=== PATIENT | male | born 1940 | race African-American/Black ===

== ENCOUNTER 2016-09-30 15:01 | Emergency (ER) | payer OTHER ==
[~2016-09-30] VITALS: Ht 182.9 cm; Wt 90.7 kg
--- NOTE | ~2016-09-30 | EKG ---
[address] [place] [address] ELECTROCARDIOGRAM REPORT Name: PERFECTO DYE Room #: [facility] M.R.#: [id number] Admission: Attend Phys: Discharge: Date of : 39 Report #: [id number] THIS REPORT FOR: //name// [facility] ED Test Date: 2016-09-30 Test Time: 15:28:39 Pat Name: PERFECTO DYE Department: Room: Gender: M Md Do Resident Urgent Care: MZGREGORY : 1940 Requested By: Tobias Drummond Order Number: [id number] MD: Measurements Intervals [place] Rate: 52 P: 9 WA: 169 QRS: -20 QRSD: 123 T: -1 QT: 464 QTc: 432 Interpretive Statements Sinus rhythm Nonspecific intraventricular conduction delay Inferior infarct, old Compared to ECG 06/25/2011 01:33:12 Intraventricular conduction delay now present Myocardial infarct finding now present [email or web address] By: [id number] Jerad Mars MD /ANTONIO
[~2016-09-30 15:01] MED LIST: ADULT LOW DOSE81 MG PO; ALTACE10 M1 PO; ALTACE5 M1 PO; APAP500 PO; ASPIRIN EC81 M1 PO; BABY ASA 81MG; CARAFATE 11 GM/10 M1; CARAFATE 11 GM/10 M1 PO; CARAFATE1 GM/10 ML PO; CIPROFLOXACIN500 M1 PO; CITRATE OF MAG296 ML PO; COLACE100 MG PO; COUMADIN 10MG T10 M1 PO; COUMADIN 4 MG TA4 M1; COUMADIN OR; CYCLOBENZAPRINE10 MG PO; FLEXERIL PO; FLONASE; LIDOCAINE VISC100 M1; LORTABELXR PO; LOVENOX; LOVENOX SQ; MECLIZINE HCL12.5 MG PO; METOCLOPRAMIDE10 MG PO; MYLANTA 12 OZ355 M1; MYLANTA 12 OZ355 M1 PO; NORCO 5-325 TA1 EACH PO; PANTOPRAZOLE SO40 MG PO; PROTONIX 20 MG20 M1 PO; RAPAFLO8 MG PO; TRAMADOL 50 MG50 MG PO; XANAX 0.5 MG0.5 M1 PO; ZETIA10 MG; ZETIA10 MG PO; ZOFRAN ODT4 MG PO
[2016-09-30 15:15] VITALS: BP 177/81
[2016-09-30 16:28] LABS: ABSOLUTE NEUTROPHILS 1.6 thou/uL (1.4-8.2); BASOPHILS 0.7 % (0.0-2.0); EOSINOPHILS 3.8 % (0.0-3.0); HEMATOCRIT 44.5 % (42.0-52.0); HEMOGLOBIN 14.5 gm/dL (14.0-18.0); LYMPHOCYTES 40.1 % (24.0-44.0); MCH 30.2 pg (26.0-34.0); MCHC 32.6 g/dL (28.0-37.0); MCV 92.6 fL (80.0-100.0); MONOCYTES 11.6 % (1.0-8.0); PLATELET COUNT 139 thou/uL (150-400); POLYS 43.8 % (36.0-66.0); RDW 16.7 % (10.5-14.5); WBC 3.6 thou/uL (4.0-11.0)
[2016-09-30 16:29] LABS: MANUAL DIFF NO
[2016-09-30 16:36] LABS: ANION GAP 8 mmol/L (7-16); BUN 13 mg/dL (7-18); CALCIUM 6.2 mg/dL (8.5-10.1); CHLORIDE 117 mmol/L (98-107); CO2 21 mmol/L (21-32); CREATININE 0.8 mg/dL (0.7-1.3); GLUCOSE 67 mg/dL (74-106); POTASSIUM 3.2 mmol/L (3.5-5.1); SODIUM 146 mmol/L (136-145)
[2016-09-30 16:43] LABS: ALBUMIN 2.4 g/dL (3.4-5.0); ALKALINE PHOSPHATASE 44 U/L (46-116); MAGNESIUM 1.4 mg/dL (1.8-2.4); SGOT 20 U/L (15-37); SGPT 16 U/L (30-65); TOTAL BILIRUBIN 0.3 mg/dL (<0.1-1.0); TOTAL PROTEIN 4.9 g/dL (6.4-8.2); TROPONIN-I < 0.04 ng/mL (<0.04-0.07)
== END 2016-09-30 18:14 | disposition home or self-care (01) ==
LOC: ER 15:01
PROVIDERS: Physician Assistant
DX: I10 Essential (primary) hypertension (principal); M54.9 Dorsalgia, unspecified; R00.2 Palpitations

== ENCOUNTER 2017-03-25 18:05 | Emergency (ER) | payer OTHER ==
[~2017-03-25] VITALS: Ht 180.3 cm; Wt 95.3 kg
[2017-03-25] MEDS ORDERED: PROTONIX40 M1 PO (18:16)
[2017-03-25 19:17] LABS: HEMATOCRIT 42.8 % (42.0-52.0); MCH 29.6 pg (26.0-34.0); MCHC 32.6 g/dL (28.0-37.0); MCV 90.7 fL (80.0-100.0); RBC 4.71 mil/uL (4.50-6.00); WBC 4.1 thou/uL (4.0-11.0)
[2017-03-25 19:25] LABS: CREATININE 1.3 mg/dL (0.7-1.3); POTASSIUM 4.6 mmol/L (3.5-5.1)
[2017-03-25 19:33] LABS: INR 2.8; PROTIME 28.2 Seconds (9.3-11.4)
[2017-03-25 21:41] VITALS: BP 131/74
== END 2017-03-25 21:42 | disposition home or self-care (01) ==
LOC: ER 18:05
PROVIDERS: Physician Assistant
DX: S30.1XXA Contusion of abdominal wall, initial encounter (principal); Z79.01 Long term (current) use of anticoagulants; I10 Essential (primary) hypertension; E78.00 Pure hypercholesterolemia, unspecified; Z86.73 Personal history of transient ischemic attack (TIA), and cerebral infarction without residual deficits; Z88.6 Allergy status to analgesic agent; Z91.041 Radiographic dye allergy status; Z88.5 Allergy status to narcotic agent; Z88.1 Allergy status to other antibiotic agents; Z88.8 Allergy status to other drugs, medicaments and biological substances; W01.0XXA Fall on same level from slipping, tripping and stumbling without subsequent striking against object, initial encounter; Y93.89 Activity, other specified; Y92.89 Other specified places as the place of occurrence of the external cause; Y99.0 Civilian activity done for income or pay

== ENCOUNTER → 2017-12-01 | Outpatient (CLI) | payer OTHER ==
[~2017-12-01] VITALS: Ht 180.3 cm; Wt 93.0 kg
[~2017-12-01] MED LIST changes: +CALCIUM 600 +1 EA13 PO; +CELEBREX100 MG/1 C PO; +CENTRUM COMPLE1 EACH PO; +COUMADIN 4 MG TA4 M1 PO; +PROTONIX40 M1 PO; +RAMIPRIL5 MG PO; +VITAMIN D-32000 UNIT PO
--- NOTE | ~2017-12-01 | HPC ---
[facility] [address] [place] [address] PAIN MANAGEMENT CONSULTATION Name: PERFECTO DYE Room #: MIGUEL MEDINAMounika Liu#: [id number] Admission: 12/01/17 Attend Phys: Mac Mccallum DO Discharge: Date of : 39 Report #: [id number] THIS REPORT FOR: //name// CC: Mac Tejada MD DATE OF SERVICE: 12/01/2017 CHIEF COMPLAINT: Neck pain, left head pain. HISTORY OF PRESENT ILLNESS: As you know, the patient is a very pleasant 77-year-old male who has had a 5-month history of ongoing neck pain, left head pain. The patient indicates pain began spontaneously. No injury or trauma. He states his pain has progressively worsened. He sought evaluation through his primary care physician who trialled conservative treatment but due to lack of improvement, the patient was subsequently referred to our clinic. He is referred today without imaging of the cervical spine; he comes with only lumbar imaging. He indicates his pain today at level of 3/10. The patient states pain is constant, describes the pain as sharp, exacerbated with driving, lying down, improves with pain medications. He places pain at around 3/10 on a daily average. He has denied any specific injury or trauma that may have led to symptom development. He indicates heat compress tends to improve his pain most effectively. The patient has been referred to our service to discuss cervicalgia. PAST MEDICAL HISTORY: 1. Hypertension. 2. Chronic colon problems. 3. Transient ischemic attacks, requiring chronic anticoagulation. 4. Incontinence and dribbling to urine. 5. Osteoarthritis. 6. Prostate cancer. PAST SURGICAL HISTORY: 1. Transurethral resection of the prostate. 2. Knee surgery. SOCIAL HISTORY: The patient denies tobacco, alcohol, IV or illicit drug use. He is retired, retired years ago. He is not receiving workmen's compensation or is he trying to obtain disability benefits. He is not in litigation in regards to pain. He is unaccompanied today. REVIEW OF SYSTEMS: Positive for night sweats, frequent and recurrent headaches, wearing corrective eyewear, hearing loss with tinnitus, chronic sinus problems, [facility] [address] [place] [address] PAIN MANAGEMENT CONSULTATION Name: PERFECTO DYE Room #: REG CL Jay.#: [id number] Admission: 12/01/17 Attend Phys: Mac Mccallum DO Discharge: Date of : 39 Report #: [id number] sore throat and voice changes, peptic ulcer disease, frequent urination, nocturia, incontinence and dribbling to urine, sexual difficulty, varicose veins, headaches, lightheadedness and dizziness, heat and cold intolerance, bleeding and bruising tendencies secondary to chronic anticoagulation. All other review of systems negative per 12-point review of systems other than those listed in history of present illness. Pain impact score 38/70 indicating moderate interference of daily activities secondary to pain. ALLERGIES: IV CONTRAST AGENT, IODINE, HYDROCODONE, ACETAMINOPHEN, ATORVASTATIN. CURRENT MEDICATIONS: Cyclobenzaprine 10 mg 3 times a day, cholecalciferol 2000 units 2 tabs per day, Centrum Silver 1 tab per day, calcium carbonate 1 tab per day, warfarin 4 mg 2 tabs per day, Ramipril 5 mg per day, pantoprazole 40 mg per day, Zetia 10 mg per day. IMAGING: No imaging of the cervical spine available. PQRS: The patient has known osteoarthritis of the low back, bilateral knees. No rheumatoid arthritis. He places pain intensity of 3/10. He is not a fall risk, has not had fallen in last 3 months. He is on a blood thinner in the form of warfarin secondary to multiple TIAs. Does have a history of hypertension, treated medically. He is not on opioids. He has a low risk of opioid abuse. Functional assessment tool indicates pain impact of 37/70, moderate in nature. PHYSICAL EXAMINATION: VITAL SIGNS: Blood pressure 103/67, pulse is 92, respiratory rate 14 and unlabored. The patient is 100% on room air. Height 5 feet 11 inches tall, weight 205 pounds, BMI calculated 28.6. GENERAL: Well-developed, well-nourished, well-hydrated, 77-year-old male. He appears his stated age. He is in no acute distress, awake, alert and oriented x 3. Current pain score is 3/10. HEENT: Normocephalic, atraumatic. Pupils equal, round, reactive to light. Extraocular muscles are intact. Sclerae nonicteric without injection. NEUROLOGIC: Cranial nerves 2-12 grossly intact. Speech fluent. The patient deemed an excellent historian. LUNGS: Clear, no wheeze, rhonchi or rales. CARDIOVASCULAR: Regular. No appreciable gallop, no rub. ABDOMEN: Soft, nontender, nondistended, normoactive bowel sounds. EXTREMITIES: Show no clubbing, no cyanosis, no edema. MUSCULOSKELETAL: There is some palpatory tenderness over the paraspinal musculature of cervical spine, left greater than right. Deep palpation of the upper cervical region causes intensification of pain with radiation over the occiput. There is severe limited range of motion to the left with pain generation and moderate to severe rotational restriction to the right of the [facility] [address] [place] [address] PAIN MANAGEMENT CONSULTATION Name: PERFECTO DYE Room #: REG [facility]#: [id number] Admission: 12/01/17 Attend Phys: Mac Mccallum DO Discharge: Date of : 39 Report #: [id number] cervical spine. Upper extremity strength is symmetrical 5/5. He is intact to light touch from C5 through T1 dermatomes. Deep tenderness reflexes are symmetrical, 1+/4 at biceps, brachioradialis and triceps. ASSESSMENT: 1. Osteoarthritis of the cervical spine. 2. Cervical spondylosis without radiculopathy. 3. Myofascial pain. 4. Cervicogenic headache. 5. Third occipital neuralgia. PLAN: 1. Based on today's physical exam, history the patient has provided, the description the patient uses in regards to pain as well as the source of his symptoms generated from the cervical spine radiating over the distribution of the third occipital nerve, likely source of the patient's pain is cervicogenic headache. Typical cervicogenic headaches are due to third occipital involvement and this appears to be the case in the patient today. We have discussed with the patient the options for treatment for cervicogenic headache. Based on the findings today, the following was discussed. We discussed physical therapy, stretching exercises, traction techniques which will not only improve the patient's overall pain, but also improve his mobility, gaining back some of the function that has been reduced likely due to fairly significant arthritic changes in the cervical region. We discussed medication management utilizing nonsteroidal anti-inflammatory. Luckily, the patient is on Coumadin which does allow us to utilize Celebrex as an anti-inflammatory. It does not preclude all nonsteroidal anti-inflammatories. We discussed intra-articular facet injections and third occipital nerve blocks. Surgical options do exist for the patient, though further imaging would be necessary before this could be discussed. After reviewing the risks and benefits of all proposed treatment options, the patient chose to begin with conservative medical management. 2. The patient was started on Celebrex 100 mg dose 1 tab p.o. b.i.d. This could be escalated to 200 mg twice a day if necessary, though we will start with a lower dose given his concomitant use of Coumadin. We do not wish to cause a potential increase in bleeding risk, though Celebrex is approved to be used concomitantly with Coumadin. He was given #60 tablets, 2 refills. He can follow up with his PCP for continuation of this therapy if effective. 3. The patient will return to our clinic on an as-needed basis. At present, he wishes to use more conservative treatment. He is going to look into the possibility of physical therapy and discuss this with his PCP. 4. We wish to thank Dr. Tejada for the referral of patient to our clinic. We will keep you apprised of his response to treatment [place] [address] PAIN MANAGEMENT CONSULTATION Name: HARDIKPERFECTO Room #: REG MAYKEL Liu#: [id number] Admission: 12/01/17 Attend Phys: Mac Mccallum DO Discharge: Date of : 39 Report #: [id number] cervicogenic headache. Again, we wish to thank you for the opportunity to see the patient in consultation. By: [id number] Mac Mccallum DO /nt
[2017-12-01 09:15] VITALS: BP 103/67
== END ==
LOC: PAIN 07:28
DX: M47.812 Spondylosis without myelopathy or radiculopathy, cervical region (principal); M54.81 Occipital neuralgia; R51 Headache; M79.1 Myalgia; I10 Essential (primary) hypertension; C61 Malignant neoplasm of prostate

== ENCOUNTER → 2018-04-30 | Outpatient (CLI) | payer OTHER ==
[~2018-04-30] VITALS: Ht 182.9 cm; Wt 95.3 kg
[~2018-04-30] MED LIST changes: +COUMADIN7.5 MG PO; +ENOXAPARIN100 MG/11 SUBQ
--- NOTE | ~2018-04-30 | P ---
[facility] [place] [address] [address] [place] [address] PROCEDURE REPORT Name: PERFECTO DYE Room #: MIGUEL MEDINAMounika Liu#: [id number] Admission: 04/30/18 Attend Phys: Saravanan Pérez MD Discharge: Date of : 39 Report #: [id number] THIS REPORT FOR: //name// CC: Saravanan Tejada BRIEF HISTORY: The patient is a 78-year-old male, well known to me. He denies any history of reflux disease and also Curran esophagus. He presents with this increasing reflux symptoms and reports recent solid food dysphagia. PREOPERATIVE DIAGNOSES: Worsening reflux disease, on therapy and dysphagia. POSTOPERATIVE DIAGNOSES: 1. Long segment of Curran, history of low-grade dysplasia. 2. Large hiatus hernia. 3. Diffuse gastritis. MEDICATIONS: Deep sedation with propofol per Anesthesia. SPECIMEN: None. ESTIMATED BLOOD LOSS: None. PROCEDURE: EGD and Butcher dilation. FINDINGS: Prior to propofol sedation, procedure of upper endoscopy and dilation were discussed with the patient as well as potential risks and its complications. He goes to [facility] for monitoring of his Curran esophagus and low-grade dysplasia. We discussed biopsy, but he would prefer that we leave that to [facility], and he plans to visit with them next spring. So unless there is something atypical, our intentions were not to routinely biopsy his Curran mucosa. DESCRIPTION OF PROCEDURE: With the patient in left lateral decubitus position, the Olympus video endoscope was inserted in the cervical esophagus under direct vision without difficulty. Examination of this organ through its entire length revealed normal esophageal mucosa in the proximal and mid esophagus. However, as we advanced the scope, Curran mucosa was seen. Starting about 7-8 cm above the gastroesophageal junction, there were islands of Curran mucosa, to advance the scope it became more confluent and with essentially completely circumferential involvement at the level of the gastroesophageal junction. Both wide and narrow band imaging was used. The Curran mucosa was flat. There were no ulcers or erosions, raised lesions or nodules. The Curran mucosa had a benign appearance. The distal esophagus is also quite tortuous. There was fluid pulled in a tortuous segment of distal esophagus consistent with reflux disease. We aspirated away all the fluid. An obvious stricture or mass was not [facility] [address] [place] [address] PROCEDURE REPORT Name: MACHELLE DYENIKKI Room #: REG [facility].#: [id number] Admission: 04/30/18 Attend Phys: Saravanan Pérez MD Discharge: Date of : 39 Report #: [id number] seen. The scope was advanced into a moderately large hiatus hernia. It was in the range of at least 3-5 cm. The mucosa and hernia were unremarkable. No ulcers were seen. As we advanced the scope through the hernia as the stomach crossed the diaphragmatic hiatus, there were linear erythematous streaks. However, no ulcers, erosions or bleeding lesions were seen. The scope was advanced fully into the distal stomach and was examined on end view as well as retroflexed views. There was a diffuse gastritis, but no ulcers were seen. Upon retroflexion, the moderately large hiatus hernia was seen. The pylorus, duodenal bulb and postbulbar sweep were all inspected and noted to be unremarkable. At that point, the scope was slowly withdrawn and careful circumferential views confirmed the above findings. The patient tolerated the procedure well. Following the procedure, he was dilated with passage of a 52-Arabic Butcher dilator. No resistance was encountered. CONDITION OF THE PATIENT UPON DISCHARGE: Following procedure, the patient drowsy, aroused, conversant and will be discharged home when fully ambulatory. INSTRUCTIONS TO THE PATIENT AND FAMILY AT THE TIME OF DISCHARGE:. The patient had increasing reflux symptoms. I do not see evidence of ongoing reflux disease. However, based on symptoms, it is Curran mucosa, we will increase his PPI to pantoprazole 40 mg twice daily. As far as his dysphagia, I did not see definite stricture, but he was dilated as noted above. If dilation helps, he can return on an as needed basis. He does have a significantly large hiatus hernia and a tortuous distal esophagus with regard to the hernia, which may be a factor as well. If symptoms continue, repair of his hiatus hernia and her antireflux procedure may be indicated. He is to return to see me in followup in the office if he continues to have difficulty. He will follow up with [facility] as previously planned. Also, the patient has a history of AVMs and no AVMs were seen in the stomach or duodenum today. <ELECTRONICALLY SIGNED> By: Saravanan Pérez MD 05/01/18 1030 1212 1430 Saravanan Pérez MD /nt
[2018-04-30 10:15] LABS: INR 1.1; PROTIME 11.4 Seconds (9.3-11.4)
== END | disposition home or self-care (01) ==
LOC: GI 07:57
PROVIDERS: Specialist
DX: K29.70 Gastritis, unspecified, without bleeding (principal); K22.70 Barrett's esophagus without dysplasia; K44.9 Diaphragmatic hernia without obstruction or gangrene; K21.9 Gastro-esophageal reflux disease without esophagitis; I10 Essential (primary) hypertension; D64.9 Anemia, unspecified; M19.90 Unspecified osteoarthritis, unspecified site; Z79.01 Long term (current) use of anticoagulants; Z79.899 Other long term (current) drug therapy; Z87.19 Personal history of other diseases of the digestive system; Z85.46 Personal history of malignant neoplasm of prostate; Z91.041 Radiographic dye allergy status
CPT/HCPCS: 62110; 62900

== ENCOUNTER → 2018-05-20 | Outpatient (CLI) | payer OTHER | LOC: RAD 08:02 | DX: R13.10 Dysphagia, unspecified (principal) ==

== ENCOUNTER 2018-07-02 14:20 | Emergency (ER) | payer OTHER ==
[~2018-07-02] VITALS: Ht 180.3 cm; Wt 97.5 kg
[~2018-07-02 14:20] MED LIST changes: +COUMADIN 3 MG TA3 M1 PO; -COUMADIN7.5 MG PO; -VITAMIN D-32000 UNIT PO; +VITAMIN D1000 UNIT PO
[2018-07-02] MEDS ORDERED: TRAMADOL 50 MG50 MG PO (16:02)
[2018-07-02] MEDS ORDERED: PREDNISONE 20 M20 MG PO (16:02)
[2018-07-02 16:53] VITALS: BP 151/73
== END 2018-07-02 16:55 | disposition home or self-care (01) ==
LOC: ER 14:20
DX: M54.41 Lumbago with sciatica, right side (principal); I10 Essential (primary) hypertension; K21.9 Gastro-esophageal reflux disease without esophagitis; E78.5 Hyperlipidemia, unspecified; Z88.6 Allergy status to analgesic agent; Z91.041 Radiographic dye allergy status; Z88.8 Allergy status to other drugs, medicaments and biological substances; Z85.46 Personal history of malignant neoplasm of prostate

== ENCOUNTER 2018-12-13 05:25 | Inpatient (IN) | payer OTHER ==
[2018-12-01 09:03] LABS: URINE BILIRUBIN NEGATIVE (Negative); URINE BLOOD NEGATIVE (Negative); URINE CLARITY CLEAR; URINE COLOR YELLOW; URINE GLUCOSE-RANDOM* NEGATIVE (Negative); URINE KETONES NEGATIVE (Negative); URINE LEUKOCYTES-REFLEX NEGATIVE (Negative); URINE NITRITE-REFLEX NEGATIVE (Negative); URINE PROTEIN (DIPSTICK) NEGATIVE (Negative); URINE UROBILINOGEN 0.2 E.U./dl (0.2-1.0)
[2018-12-01 09:05] LABS: HEMATOCRIT 44.5 % (42.0-52.0); HEMOGLOBIN 14.7 gm/dL (14.0-18.0); MCH 30.4 pg (26.0-34.0); RBC 4.84 mil/uL (4.50-6.00); RDW 16.3 % (10.5-14.5); WBC 2.9 thou/uL (4.0-11.0)
[2018-12-01 09:18] LABS: ALBUMIN 3.8 g/dL (3.4-5.0); CALCIUM 9.5 mg/dL (8.5-10.1); CREATININE 1.2 mg/dL (0.7-1.3); POTASSIUM 4.4 mmol/L (3.5-5.1)
[2018-12-01 11:35] LABS: INR 1.7; PROTIME 17.6 Seconds (9.3-11.4)
--- NOTE | 2018-12-01 16:51 | EKG ---
[place] [address] [facility] [place] [address] ELECTROCARDIOGRAM REPORT Name: PERFECTO DYE Room #: PRE IN M.R.#: [id number] ������������������ Admission: ������������������ Attend Phys: Andrew Sotelo MD Discharge: ������������������ Date of : 39 Report #: [id number] ����������������������������������������������������������������� [id number] THIS REPORT FOR: //name// [facility] Test Date: 2018-12-01 Test Time: 08:46:58 Pat Name: PERFECTO DYE Department: Room: Gender: Fish Receiver: YANG YU : 1940 Requested By: nAdrew Sotelo Order Number: [id number] MD: Liam Arboleda Measurements Intervals [place] Rate: 58 P: 35 SD: 165 QRS: -12 QRSD: 101 T: 7 QT: 431 QTc: 424 Interpretive Statements Sinus bradycardia Abnormal R-wave progression, early transition Inferior infarct, old Compared to ECG 09/30/2016 15:28:39 No significant change was found Electronically Signed On 12-01-2018 16:51:19 CDT by Liam Arboleda [email or web address] ��������������������������������������������� <ELECTRONICALLY SIGNED> ���������������������������������������� By: Liam Arboleda MD, [facility] ��������������������������������������������� 12/01/18 1651 Liam Arboleda MD, [facility] /EPI
[~2018-12-13] VITALS: Ht 180.3 cm; Wt 92.1 kg
[~2018-12-13 05:25] MED LIST changes: +PREDNISONE 20 M20 MG PO
[2018-12-13 10:47] VITALS: BP 158/98
[2018-12-13 16:00] VITALS: BP 130/80
--- NOTE | 2018-12-13 16:10 | O ---
[facility] [place] [address] OPERATIVE REPORT Name: PERFECTO DYE Room #: 150-3 ADM IN M.R.#: [id number] Admission: 12/13/18 ������������������ Attend Phys: Andrew Sotelo MD Discharge: ������������������ Date of : 39 Report #: [id number] THIS REPORT FOR: //name// CC: Godfrey Sotelo DATE OF SERVICE: 12/13/2018 PREOPERATIVE DIAGNOSIS: Left knee osteoarthritis. POSTOPERATIVE DIAGNOSIS: Left knee osteoarthritis. PROCEDURE: Left total knee arthroplasty using Navio robotic assistance. SURGEON: Andrew Sotelo MD GANTRY RIGGER: Laurie Avila PA-C. INDICATIONS FOR ASSISTANCE: Throughout the case, extensive retraction and manipulation of the knee was required. This was afforded to me by my automobile mechanic assistant. ANESTHESIA: LMA with an adductor canal block. IMPLANTS: Swan and Nephew size 7 Legion cobalt chrome posterior stabilized femur, a size 6 tibia, a size 10 polyethylene and a 35 patella. TOURNIQUET TIME: 67 minutes. ESTIMATED BLOOD LOSS: 25 mL. COMPLICATIONS: None. SPECIMENS: None. CONDITION UPON LEAVING THE OPERATING ROOM: Stable. INDICATIONS FOR PROCEDURE: The patient is a 78-year-old gentleman with severe left knee osteoarthritis. He failed conservative measures for this and after discussion with him, he elected for left total knee arthroplasty. DESCRIPTION OF PROCEDURE: Risks, benefits, alternatives and complications were discussed in detail with the patient including but not limited to risk of anesthesia, risk of damage to nerves, arteries and blood vessels, risk for infection and bleeding, risk for continued knee pain, and need for reoperation. Informed consent was obtained from the patient. Left knee was appropriately marked in the preoperative holding area. IV Ancef was given for preoperative [facility] [address] [place] [address] OPERATIVE REPORT Name: PERFECTO DYE Room #: 150-3 ADM IN M.R.#: [id number] Admission: 12/13/18 ������������������ Attend Phys: Andrew Sotelo MD Discharge: ������������������ Date of : 39 Report #: [id number] antibiotics. Adductor canal block was placed by anesthesia. He was brought to the operating room and placed in supine position on operating room table. LMA anesthesia was induced without complication. Tourniquet was placed on the left thigh. Left lower extremity was prepped and draped in normal sterile fashion. Timeout was performed properly identifying the patient and procedure as well as the instrumentation. All in the operating room were in agreement. Left lower extremity was exsanguinated. Tourniquet was inflated. Tourniquet time was 67 minutes. Standard midline approach to the knee was made with a 10 blade through the skin. Dissection was taken down sharply to the fascia and deep flaps were developed medially and laterally. A fresh 10 blade was used to make a medial parapatellar arthrotomy and the knee was inspected. There was severe tricompartmental osteoarthritis. ACL and PCL were removed sharply. Reference pins were placed in the femur and the tibia and the knee was then digitally mapped using the Navio robotic system. We sized to a size 7 femur and a size 6 tibia with a size 11 spacer. After acceptance of an intraoperative plan, the distal femoral cut was made with the Navio bur. The 4-in-1 size 7 cutting block was then placed. Anterior, posterior and chamfer cuts were made. Attention was then turned to the tibia. The tibial resection guide was pinned in place using the DEMANDIT system for placement and tibial resection was made. Flexion and extension gaps were then checked and found to have good balance in flexion and extension medially as well as laterally. Tibia was sized, found to be a size 6. A size 6 tibial trial was placed, pinned and punched. The size 7 femoral trial was placed and box cut was noted. This was then trialed with a size 9 and size 10 polyethylene. A size 10 polyethylene had the best fit in range of motion with 1 to 1.5 mm of laxity medially and laterally throughout range of motion. A 9 mm was taken off the posterior surface of the patella and a size 35 patellar trial button was placed. Knee was taken through range of motion, found to be stable, found to have good patellar tracking. Trial components removed. Bony ends were thoroughly irrigated with normal saline. A final size 6 tibia, a size 7 Legion cobalt chrome posterior stabilized femur and a size 35 patella were cemented in place using standard cementation techniques. While cement cured, a periarticular injection consisting of morphine, ropivacaine, epinephrine and Toradol was placed around the knee joint capsule. After the cement cured, tourniquet was deflated. Hemostasis was obtained with Bovie cautery. A final size 10 polyethylene was placed. A gram of vancomycin was placed in the joint. Fascia was closed with 0 Vicryl, skin was closed with 2-0 Vicryl, 3-0 Monocryl. Dermabond and a SUSAN dressing was applied. The patient tolerated the procedure well and went to the recovery room under care of Anesthesia postoperatively. ��������������������������������������������� <ELECTRONICALLY SIGNED> ���������������������������������������� By: Andrew Sotelo MD ��������������������������������������������� 12/13/18 1610 1435 1529 Andrew Sotelo MD /nt
--- NOTE | 2018-12-13 19:30 | NUR ---
REceived pt from post op with SUSAN dressing dry and intact. IV started. Regualr diet is well tolerated, pt had no complaints of pain. No signs of distress have been noted. VS stable POC followed.
[2018-12-13 19:44] VITALS: BP 120/69
[2018-12-13 20:30] VITALS: BP 120/69
[2018-12-14 00:01] VITALS: BP 116/62
[2018-12-14 00:53] VITALS: BP 125/74
[2018-12-14 04:28] VITALS: BP 116/62
--- NOTE | 2018-12-14 05:06 | NUR ---
Assumed pt care at 1900. A/OX4,VSS.CMS intact on LLE,SUSAN dsg in place clean and dry.Pt voiding without any difficulties per urinal. Hasn't been out of bed post-op. Denies pain on assessment. IFV infusing via RFA without problems. Resting in bed with no distress noted. Fall precautions implemented. Will continue to monitor pt.
[2018-12-14 05:55] LABS: HEMATOCRIT 35.5 % (42.0-52.0); HEMOGLOBIN 11.9 gm/dL (14.0-18.0); MCH 30.8 pg (26.0-34.0); MCHC 33.4 g/dL (28.0-37.0); RBC 3.86 mil/uL (4.50-6.00); RDW 16.3 % (10.5-14.5); WBC 7.5 thou/uL (4.0-11.0)
[2018-12-14 07:17] VITALS: BP 121/73
[2018-12-14] MEDS ORDERED: NEURONTIN 300300 M1 PO (09:49)
--- NOTE | 2018-12-14 12:49 | NUR ---
PT ADMITTED RELATED TO LT TOTAL KNEE REPLACEMENT. CM REVIEWED CHART AND SPOKE WITH CARE TEAM. CM MET WITH PT AT BEDSIDE THIS DAY. PT IS A&O X4. CM ROLE INTRODUCED. PT INDICATED HE LIVES IN A HOUSE WITH IS WITH 7 STEPS TO ENTER AND 7 STEPS INSIDE. 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 PT INDICATED HE HAS A FWW FOR HOME USE. PT INDICATED THAT HE IS SET UP WITH OP THERAPY AT [facility] AND THAT HE PLANS TO GO TOMORROW. CARE TEAM INIDCATE THAT PT IS TO DO STEPS THIS AFTERNOON AND WILL LIKELY DC AFTER THAT. PT HAS ALL NEED UPON DC. CM TO FOLLOW INDICATED WITH DC PLANNING.
--- NOTE | 2018-12-14 13:50 | NUR ---
PT WAS AMBULATING IN THE [place]Z WAY WITH PHYSICAL THERAPY AND SYNCOPE EPISODE IN THE JA[place] WAY WITH WALKER. RAPID RESPONSE CALLED. PHYSICAL THERAPY USED ROLLING CHAIR AND RAPIDLY TO ROOM AND PLACED IMEDIATELY IN THE BED. EYES ROLLING IN THE HEAD AND PT UNAWARE OF WHAT IS HAPPENING. UNABLE TO VERBALIZE. EKG DONE AND SINUS RHYTHM ON THE MONITOR. VS SEE RAPID SHEET RESPONSE. ON OXYGEN AT 4 LITERS. AND EKG DONE. WILL TRANSFER TO TELE FLOOR AT THIS TIME. REPORT CALLED TO ANCELMO SORIA TO ASSUME CARE. AT BEDSIDE FOR SUPPORT. WILL CONTINUE TO TRANSFER PT TO TELE FLOOR AND FURTHER ONGOING NURSING CARE AND TREATEMENT AT THIS TIME.
[2018-12-14 15:11] VITALS: BP 112/78
--- NOTE | 2018-12-14 16:20 | NUR ---
VISUAL AID EXPERT activated-see flowsheet
[2018-12-14 21:39] VITALS: BP 102/68
[2018-12-15] VITALS (7 sets, daily range): BP systolic 107–130; BP diastolic 75–87
--- NOTE | 2018-12-15 05:16 | NUR ---
PT RESTING IN BED. AMBULATES WITH WALKER. PT SR ON MONITOR. PT REMAINS WITH SUSAN DRESSING IN PLACE AND OUTLINED DRAINAGE ON DSG. PT HAS ICE PACK TO LEFT KNEE FOR COMFORT.
[2018-12-15 05:27] LABS: HEMOGLOBIN 11.4 gm/dL (14.0-18.0); MCH 30.7 pg (26.0-34.0); MCHC 33.5 g/dL (28.0-37.0); MCV 91.6 fL (80.0-100.0); RBC 3.71 mil/uL (4.50-6.00); RDW 16.7 % (10.5-14.5); WBC 6.3 thou/uL (4.0-11.0)
--- NOTE | 2018-12-15 08:09 | EKG ---
[address] [place] [address] ELECTROCARDIOGRAM REPORT Name: PERFECTO DYE Room #: 353-P ADM IN M.R.#: [id number] ������������������ Admission: 12/13/18 ������������������ Attend Phys: Andrew Stoelo MD Discharge: ������������������ Date of : 38 Report #: [id number] ����������������������������������������������������������������� [id number] THIS REPORT FOR: //name// [facility] Test Date: 2018-12-14 Test Time: 13:54:27 Pat Name: PERFECTO DYE Department: Room: 353 P Gender: M Cutter And Presser: FARIHA : 1940 Requested By: Andrew Sotelo Order Number: [id number] MD: Liam Arboleda Measurements Intervals [place] Rate: 70 P: 41 MS: 157 QRS: -1 QRSD: 104 T: 33 QT: 409 QTc: 442 Interpretive Statements Sinus rhythm Abnormal R-wave progression, early transition Compared to ECG 12/01/2018 08:46:58 Sinus bradycardia no longer present inferior Q waves are less prominent Electronically Signed On 12-15-2018 8:09:17 CDT by Liam Arboleda [email or web address] ��������������������������������������������� <ELECTRONICALLY SIGNED> ���������������������������������������� By: Liam Arboleda MD, [facility] ��������������������������������������������� 12/15/18 0809 1354 1354 Liam Arboleda MD, [facility] /EPI
--- NOTE | 2018-12-15 12:38 | NUR ---
PT IS ALERT AND ORIENTED X4. LUNGS ARE CLEAR ON ROOM AIR. UP WITH PHYSICAL THERAPY TODAY AND AMULATED WITH PHYSICAL THERAPY NO SYNCOPE EPISODE NOTED TODAY WITH AMBULATION. AT BEDSIDE FOR SUPPORT. ABDOMEN IS SOFT AND BOWEL SOUNDS ACTIVE X4. COMPLAINS OF SOME LEFT KNEE PAIN RATES 5-6 ON PAIN SCALE TAKING TYLENOL FOR PAIN SEE MAR FOR TIME OF ADMINISTRATION. WILL CONTINUE TO ASSESS AND MONITOR PER NURSING.
--- NOTE | 2018-12-15 15:06 | NUR ---
DISCHARGE NOTE: SW reviewed chart and spoke with nursing. 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 Pt may discharge home later today. Awaiting for ortho to come evaluate pt. Pt has walker at home. Pt is set up with outpatient therapy at [facility]. No additional SW needs identified at this time, but is available to assist should needs arise.
--- NOTE | 2018-12-15 16:51 | NUR ---
PT IS DISCHARGED TO HOME VIA WHEEL CHAIR VIA WITH ALL BELONGINGS. DISCHARGE INSTRUCTIONS VERBALIZED UNDERSTANDING PER PT. NO ISSUES OR CONCERNS NOTED WITH DISCHARGE TO HOME.
== END 2018-12-15 17:08 | disposition home or self-care (01) | DRG 470 ==
LOC: 4W 05:25 → TBA 05:25 → PRE 06:18 → 4W 16:25 → 3W 12-14 15:02 → ENTRNSPT 12-15 16:43 → 3W 12-15 17:08
PROVIDERS: ADMIT Orthopaedic Surgery
PROC: 0SRD0J9 Replacement of Left Knee Joint with Synthetic Substitute, Cemented, Open Approach (ICD-10-PCS; principal; 2018-12-13)
PROC: 8E0Y0CZ Robotic Assisted Procedure of Lower Extremity, Open Approach (ICD-10-PCS; principal; 2018-12-13)
DX: M17.0 Bilateral primary osteoarthritis of knee (principal); R55 Syncope and collapse; N40.0 Benign prostatic hyperplasia without lower urinary tract symptoms; E78.5 Hyperlipidemia, unspecified; I10 Essential (primary) hypertension; K21.9 Gastro-esophageal reflux disease without esophagitis; K22.70 Barrett's esophagus without dysplasia; Z88.6 Allergy status to analgesic agent; Z88.8 Allergy status to other drugs, medicaments and biological substances; Z91.041 Radiographic dye allergy status; Z79.01 Long term (current) use of anticoagulants; Z79.899 Other long term (current) drug therapy; Z87.891 Personal history of nicotine dependence; Z86.73 Personal history of transient ischemic attack (TIA), and cerebral infarction without residual deficits; Z85.46 Personal history of malignant neoplasm of prostate
CPT/HCPCS: 10047; 10779; 10879; 50010; 50101; 50415; 50954; 51130; 51225; 53000; 53078; 53364; 54118; 56527; 56528; 57095; 57103; 57110; 57127; 57180; 62110; 62900; 64042; 70005

== ENCOUNTER 2019-01-07 10:55 | Inpatient (IN) | payer OTHER ==
[~2019-01-07] VITALS: Ht 180.3 cm; Wt 89.4 kg
[2019-01-07] VITALS (19 sets, daily range): BP systolic 89–129; BP diastolic 42–84
[~2019-01-07 10:55] MED LIST changes: +NEURONTIN 300300 M1 PO
[2019-01-07 11:42] LABS: ABSOLUTE NEUTROPHILS 2.7 thou/uL (1.4-8.2); BASOPHILS 0.6 % (0.0-2.0); CALCIUM 9.1 mg/dL (8.5-10.1); CREATININE 1.2 mg/dL (0.7-1.3); EOSINOPHILS 4.8 % (0.0-3.0); HEMATOCRIT 37.4 % (42.0-52.0); HEMOGLOBIN 12.3 gm/dL (14.0-18.0); LYMPHOCYTES 27.8 % (24.0-44.0); MCHC 32.8 g/dL (28.0-37.0); MCV 91.6 fL (80.0-100.0); MONOCYTES 8.7 % (1.0-8.0); PLATELET COUNT 249 thou/uL (150-400); POLYS 58.1 % (36.0-66.0); POTASSIUM 4.1 mmol/L (3.5-5.1); RBC 4.09 mil/uL (4.50-6.00); RDW 16.6 % (10.5-14.5); WBC 4.6 thou/uL (4.0-11.0)
[2019-01-07 11:48] LABS: ALBUMIN 3.4 g/dL (3.4-5.0); TOTAL BILIRUBIN 0.7 mg/dL (<0.1-1.0); TOTAL PROTEIN 7.8 g/dL (6.4-8.2)
[2019-01-07 11:52] LABS: INR 3.2; PROTIME 32.9 Seconds (9.3-11.4)
[2019-01-07 16:24] LABS: HEMATOCRIT 25.4 % (42.0-52.0)
--- NOTE | 2019-01-07 19:58 | NUR ---
Pt arrived ICU via stretcher. He is accompanied by IR staff to room 247. S/P Angiogram of messenteric artery with embolization. He is AAOx4. No s/sx of any distress indicates. He denied any CP or chest discomfort up on arrival. He is anemic due to accute blood loss. He received 1st unit of PRBC prior arrived in ICU per IR staff report. Multiple red raised rashes noted on his trunk area,possible allergic reaction to dye during procedure in IR, otherwise he denies of any other signs of blood reaction. C/O ANDRE and tenderness of ABD. No pain med on order at this time. 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 Rt groin cath site with dressing intact. Site is soft, no hematoma indicates. Good pulses on LE. He was instructed to keep Rt leg straight while on bedrest 6 hrs after procedure. SR on monitor, BP stable. Hx obtained from pt and his . Assessment completed. Care plans are initiated, continue working toward goals.
--- NOTE | 2019-01-07 20:10 | NUR ---
SPOKE WITH BLOOD BANK REGARDING OF PRBC SECOND UNIT HASN'T BEEN GIVEN IN THE PAST HR. STAFF STATED IT IS OKAY TO GIVE BLOOD AND WILL HAVE TO RUN PRBC WITHIN 4 HRS STARTING FROM ISSUEING TIME. WILL WATCH FOR S/SX OF BLOOD REACTION.
[2019-01-07 20:59] LABS: INR 2.2; PROTIME 22.9 Seconds (9.3-11.4)
--- NOTE | 2019-01-07 21:51 | NUR ---
CALLED BACK; HE WILL DISCUSS ABOUT CASE WITH ADE AND WILL CALL BACK.
--- NOTE | 2019-01-07 22:27 | NUR ---
CALLED BACK. NO NEW ORDER AT THIS TIME. WILL CONTINUE TO MONITOR.
[2019-01-07 23:42] LABS: HEMATOCRIT 28.5 % (42.0-52.0); HEMOGLOBIN 9.5 gm/dL (14.0-18.0)
[2019-01-08] VITALS (38 sets, daily range): BP systolic 94–148; BP diastolic 56–85
--- NOTE | 2019-01-08 04:53 | NUR ---
Pt remains hemodynamically stable in this shift. He passed 2 dark [place] stools with multiple large blood clots noted. last HH 9.3 mg/dl, notified Lab for stat labs. His rashes completely gone. Continue to monitor him closely.
[2019-01-08 05:44] LABS: HEMATOCRIT 28.6 % (42.0-52.0); HEMOGLOBIN 9.6 gm/dL (14.0-18.0); MCH 30.5 pg (26.0-34.0); MCHC 33.5 g/dL (28.0-37.0); RBC 3.14 mil/uL (4.50-6.00); WBC 4.9 thou/uL (4.0-11.0)
[2019-01-08 05:53] LABS: INR 2.3; PROTIME 24.4 Seconds (9.3-11.4)
[2019-01-08 05:59] LABS: CALCIUM 8.2 mg/dL (8.5-10.1); POTASSIUM 4.7 mmol/L (3.5-5.1)
[2019-01-08 13:08] LABS: HEMOGLOBIN 9.1 gm/dL (14.0-18.0)
--- NOTE | 2019-01-08 16:40 | NUR ---
ASSUMED CARE THIS AM, AWAKE AND ALERT. NO COMPLAINTS OF PAIN OR NAUSEA. SR ON MONITOR. 0X4. VERY PLEASANT. RECEIVED REPORT FROM YANG HINKLE THAT HE HAD TWO LARGE LOOSE MAROON STOOLS WITH CLOTS DURING THE EVENING SHIFT. H&H Q8HR. WILL NOTIFY MD FOR HGB < 8.0. NPO EXCEPT ICE CHIPS.
--- NOTE | 2019-01-08 16:44 | NUR ---
DR. PERES TO SEE PATIENT. TREATING INR TO LESS THAN 1.5 FOR COLONOSCOPY. VIT K PO GIVEN. STARTED ON CLEAR LIQUIDS. TOLERATING WELL.
--- NOTE | 2019-01-08 16:46 | NUR ---
LARGE MAROON LOOSE STOOL NOTED WITH MANY CLOTS. REPEAT HGB IS 9.1. NEXT DRAW IS AT 2000. CONTINUES TO TOLERATE CLEAR LIQUIDS
[2019-01-08 20:07] LABS: HEMATOCRIT 27.7 % (42.0-52.0); HEMOGLOBIN 9.2 gm/dL (14.0-18.0)
[2019-01-09] VITALS (7 sets, daily range): BP systolic 107–140; BP diastolic 69–78
--- NOTE | 2019-01-09 04:19 | NUR ---
RECEIVED PT'S CARE AT 1930; PT. ON BED; AOX4; DURING ASSESSMENT NO C/O PAIN; NO HS MEDICATION; REQUESTED NOT BE WOKE UP THE LESS POSSIBLE THROUGH THE NIGHT; EDUCATED ABOUT TAKING VS AT MIDNIGHT & EARLY ON THE MORNING AROUND 0400; ST. UNDERSTANDING; EARLY ON THE NIGHT HAVE A BM; RED FORM BLOOD CLOTS; STRONG MALAODOURUS BM & FLATUS; ABLE TO REST THOROUGH THE NIGHT WITH EYES CLOSED; NO C/O HEADACHE OR SOB; HR BETWEEN 50-60s; REQUESTED PRN PAIN MEDICATION AROUND 0400; WILL RE-ASSESS; ASSESSMENT CHARGED; FOLLOWING POC; MONITORING; WILL PASS ON REPORT.
[2019-01-09 06:07] LABS: HEMATOCRIT 25.6 % (42.0-52.0); HEMOGLOBIN 8.5 gm/dL (14.0-18.0); MCH 30.6 pg (26.0-34.0); MCHC 33.3 g/dL (28.0-37.0); MCV 91.9 fL (80.0-100.0); RBC 2.79 mil/uL (4.50-6.00); RDW 16.4 % (10.5-14.5); WBC 4.4 thou/uL (4.0-11.0)
[2019-01-09 06:17] LABS: INR 1.9; PROTIME 19.7 Seconds (9.3-11.4)
[2019-01-09 11:22] LABS: HEMATOCRIT 23.9 % (42.0-52.0); HEMOGLOBIN 7.9 gm/dL (14.0-18.0)
--- NOTE | 2019-01-09 18:49 | NUR ---
PATIENT CARE ASSUMED, ASSESSMENT CHARTED, VSS, ALERT AND ORIENTED, PATIENT HAVING BLOODY LIQUID STOOLS AND IS SCHEDULED FOR FLEXIBLE SIGMOIDOSCOPY. INFUSED ONE UNIT OF FFP, NO COMPLAINTS OF PAIN. WILL CONTINUE TO MONITOR.
[2019-01-10 00:09] VITALS: BP 131/65
--- NOTE | 2019-01-10 03:39 | NUR ---
RECEIVED PT'S CARE AT 1930; PT. ON BED; AXO4; C/O ITCHING OVER BACK & L. CALF; ST. FEELING THE SAME ITCHING LAST TIME WHEN HE GOT BLOOD PRODUCTS; [employer] NOTIFED; ORDERS RECEIVED; MEDICATION GIVEN DURING HS ASSESSMENT; ST. HAVING SOME KNEE PAIN; REFUSED PAIN MEDICATION; EDUCATED ABOUT PAIN MANAGEMENT; ST. UNDERSTANDING; ST. NOT HAVING BM SINCE PROCEDURE EARLY ON THE MORNING; ST. FEELING SOME DIZZINESS WHEN STANDING UP; EDUCATED ABOUT CALLING BEFORE STANDING UP FROM BED; ST. UNDERSTANDING; REMAINED TO CALL IMMEDIATELY IF DIZZINESS INCREASE WHILE ON BED OR SOB; ST. UNDERSTANDING; PASSING FLATUS; ABLE TO REST THROUGH THE NIGHT WITH EYES CLOSED; DURING ROUNDING AT 0200 PT. REQUESTED PRN PAIN MEDICATION; MEDICATION GIVEN; PAIN RE-ASSESSMENT PT. SLEEPING; BP WNL EARLY ON THE NIGHT & AT MIDNIGHT; ASSESSMENT CHARGED; FOLLOWING POC; MONITORING; WILL PASS ON REPORT.
[2019-01-10 04:32] VITALS: BP 120/64
[2019-01-10 04:56] LABS: HEMATOCRIT 21.6 % (42.0-52.0); HEMOGLOBIN 7.2 gm/dL (14.0-18.0); MCH 30.8 pg (26.0-34.0); MCHC 33.4 g/dL (28.0-37.0); MCV 92.2 fL (80.0-100.0); RBC 2.35 mil/uL (4.50-6.00); WBC 5.3 thou/uL (4.0-11.0)
[2019-01-10 05:07] LABS: INR 1.3
[2019-01-10 08:37] VITALS: BP 131/77
--- NOTE | 2019-01-10 10:15 | NUR ---
MET WITH PATIENT HE ADMITS WITH ANEMIA. RECENT KNEE REPLACEMENT OF LEFT KNEE IN NOVEMBER. PATIENT REPORTS ALL NEEDED DME AT HOME, WALKER, CANE. HE REPORTS HE HAS BEEN DOING OUTPATIENT THERAPY AT [facility] IN [place]. PCP IS DR ARIAS IN [place]. HE REPORTS STEPS TO ENTER CONDO AND APPROX 7 STEPS INSIDE CONDO. PATIENT REPORTS HE HAS BEEN NAVIGATING STEPS FINE. LIVES IN HOME WITH , WHO CAN DRIVE. PATIENT ANTICIPATES NO NEEDS AT DC THEN ASKS IF HE IS GOING TO OUR INPATIENT REHAB THE PHYS MENTIONED IT. THERAPY EVALS ORDERED. [facility] FOLLOWING.
[2019-01-10 11:55] VITALS: BP 132/74
--- NOTE | 2019-01-10 16:18 | P ---
[facility] [place] [address] PROCEDURE REPORT Name: PERFECTO DYE Room #: 211-P [facility] IN M.R.#: [id number] Admission: 01/07/19 Attend Phys: Ruperto Arana MD Discharge: Date of : 39 Report #: [id number] THIS REPORT FOR: //name// CC: Ruperto Cantu DATE OF SERVICE: 01/09/2019 PROCEDURE PERFORMED: Flexible sigmoidoscopy with bleeding control. HISTORY OF PRESENT ILLNESS: The patient is a 78-year-old male with a history of hematochezia, drop in his hemoglobin on admission, presented a hemoglobin of 12.3, he has dropped to 7.9 at this point. He underwent an emergent arteriogram with coiling on 01/07/2019, in which active extravasation was noted off the ____ branch of the marginal artery between the sigmoid artery and the left colic artery, distribution in the distal descending colon successfully embolized, no further hemorrhage; however, since then, the patient continues to have intermittent bright red blood and drop in his hemoglobin. Therefore, plan is for endoscopy. DESCRIPTION OF PROCEDURE: The risks and benefits of the procedure were explained to the patient, those risks including but not limited to bleeding, perforation and the risk of sedation. He understood these risks and gave informed consent. Conscious sedation was given using fentanyl and Versed. Next, a digital rectal exam was initially performed, which was normal. Next using a standard Olympus colonoscope, the scope was placed in the patient's anus and advanced under direct vision into the transverse colon. The entire colon was filled with a mixture of bright red blood and old blood throughout, which significantly decreased visualization. Multiple washings and aspirations were performed. The blood was noted to be significantly darker in the transverse colon. As the scope was withdrawn into the descending colon, an area of bright red blood was noted. Multiple washings and aspirations were performed. This appears to be an actively bleeding diverticulum. I then injected it with 2 mL of epinephrine which did slow the bleeding. At that point, a single endoclip was placed and no further bleeding was noted. No other obvious bleeding sites were noted. The scope was then withdrawn and the procedure terminated. The patient tolerated the procedure well. IMPRESSION: Actively bleeding diverticulum in what appears to be the descending colon, status post epinephrine injection and endoclip placement. No further bleeding noted at this time. RECOMMENDATIONS: 1. Observe the patient. 2. We will start clear liquids. [address] [address] PROCEDURE REPORT Name: PERFECTO DYE Room #: 211-P [facility] IN M.R.#: [id number] Admission: 01/07/19 Attend Phys: Ruperto Arana MD Discharge: Date of : 39 Report #: [id number] 3. Continue to monitor hemoglobin closely. Thank you for allowing me to participate in his care. <ELECTRONICALLY SIGNED> By: Bimal Barton MD 01/10/19 1618 1315 30 Bimal Barton MD /timo
[2019-01-10 16:52] VITALS: BP 113/97
--- NOTE | 2019-01-10 18:04 | NUR ---
A&O X4. C/O LT KNEE PAIN AND MEDICATED INDICATED. RPOGRESSING TOWARDS GOAL. WILL CONTINUE WOTH POC.
[2019-01-10 19:38] VITALS: BP 120/63
[2019-01-11] VITALS (7 sets, daily range): BP systolic 118–137; BP diastolic 60–700
[2019-01-11 05:24] LABS: HEMOGLOBIN 6.8 gm/dL (14.0-18.0); RBC 2.18 mil/uL (4.50-6.00); RDW 16.1 % (10.5-14.5)
[2019-01-11 05:27] LABS: HEMATOCRIT 20.2 % (42.0-52.0); MCH 31.1 pg (26.0-34.0); MCHC 33.5 g/dL (28.0-37.0); MCV 92.9 fL (80.0-100.0); WBC 3.9 thou/uL (4.0-11.0)
--- NOTE | 2019-01-11 06:45 | NUR ---
PT RESTING QUIETLY IN ROOM DID CALL OUT FOR PRN PAIN MED IN THE NOC, VSS, WILL CON'T TO MONITOR PER PPOC.
[2019-01-11 16:20] LABS: HEMATOCRIT 22.3 % (42.0-52.0); HEMOGLOBIN 7.5 gm/dL (14.0-18.0)
--- NOTE | 2019-01-11 19:26 | NUR ---
ASSUMED CARE AT 730 AM, ALERT AND ORIENTED X4. VSS AND DENIES ANY DISCOMFORT. 1 UNIT OF RBC INFUSED, AND REACTION TO BLD PRODUCT NOTED POST TRANFUSSION H&H DONE. WILL CONTINUE WITH POC.
[2019-01-12 04:30] VITALS: BP 134/72
--- NOTE | 2019-01-12 05:08 | NUR ---
ASSESSMENTS CHARTED. PATIENT RECEIVED 1 UNIT OF PRBC DURING DAY. NO CURRENT SIGN OF ACTIVE BLEEDING. PATIENT RESTING COMFORTABLY. PLAN OF CARE IS TO RETURN HOME TODAY. DENIED PAIN. FALL PRECAUTIONS IN PLACE.
[2019-01-12 08:16] VITALS: BP 130/61
[2019-01-12 09:12] LABS: HEMATOCRIT 25.6 % (42.0-52.0); HEMOGLOBIN 8.6 gm/dL (14.0-18.0)
[2019-01-12] MEDS ORDERED: COLACE100 MG PO (09:40)
[2019-01-12 11:01] VITALS: BP 130/61
--- NOTE | 2019-01-12 11:40 | NUR ---
ASESSMENT CHARTED - MEDS PER JUL - NO CO'S OF PAIN OR NAUSEA. NO EVIEIDENCE OF FURTHER BLEEDING - PT HEAM AT 0930 UP TO 8.6. UP AD VIVIANA IN ROOM WITH AND B THE HALLS. HOLLY DIET AND FLUIDS. PT HOME THIS AM - INSTRUCTION RE HOME MEDS/ CARE AND FOLLOW UP GIVEN TO PATIENT - STATED UNDERSTANDING OF INSTRUCTION GIVEN. LEFT THE UNIT VIA WHEELWHAIR - HOME VIA PVT VEHICLE ACCOMPANIED BY . IV REMOVED PRIOR TO D/C. NO CO'S AT TIME OF D/C.
== END 2019-01-12 11:35 | disposition home or self-care (01) | DRG 982 ==
LOC: ER 10:55 → EROBS 13:47 → 2N 13:47 → ICU 19:41 → 2N 01-08 17:26 → ENTRNSPT 01-12 11:29 → EDTRNSPTSTS 01-12 11:31 → 2N 01-12 11:35
PROVIDERS: Hospitalist; Internal Medicine Gastroenterology; Nurse Practitioner; Physician Assistant; Radiology Vascular & Interventional Radiology; ADMIT Hospitalist
DX: K57.31 Diverticulosis of large intestine without perforation or abscess with bleeding (principal); D68.9 Coagulation defect, unspecified; N40.0 Benign prostatic hyperplasia without lower urinary tract symptoms; K21.9 Gastro-esophageal reflux disease without esophagitis; I10 Essential (primary) hypertension; E78.5 Hyperlipidemia, unspecified; D64.9 Anemia, unspecified; Z96.659 Presence of unspecified artificial knee joint; K22.70 Barrett's esophagus without dysplasia; K44.9 Diaphragmatic hernia without obstruction or gangrene; K62.5 Hemorrhage of anus and rectum; Z79.01 Long term (current) use of anticoagulants; Z79.899 Other long term (current) drug therapy; Z85.46 Personal history of malignant neoplasm of prostate; Z88.8 Allergy status to other drugs, medicaments and biological substances; Z88.6 Allergy status to analgesic agent; Z91.041 Radiographic dye allergy status; Z86.010 Personal history of colon polyps; Z86.73 Personal history of transient ischemic attack (TIA), and cerebral infarction without residual deficits; Z92.3 Personal history of irradiation
CPT/HCPCS: 10081; 10194; 10196

== ENCOUNTER 2019-01-14 15:43 | Inpatient (IN) | payer OTHER ==
[~2019-01-14] VITALS: Ht 180.3 cm; Wt 88.9 kg
[2019-01-14 15:46] VITALS: BP 92/55
[2019-01-14 16:49] LABS: BASOPHILS 0.5 % (0.0-2.0); EOSINOPHILS 2.3 % (0.0-3.0); HEMATOCRIT 24.5 % (42.0-52.0); HEMOGLOBIN 8.2 gm/dL (14.0-18.0); LYMPHOCYTES 17.6 % (24.0-44.0); MCH 30.9 pg (26.0-34.0); MCHC 33.4 g/dL (28.0-37.0); MCV 92.5 fL (80.0-100.0); MONOCYTES 11.5 % (1.0-8.0); PLATELET COUNT 180 thou/uL (150-400); POLYS 68.1 % (36.0-66.0); RBC 2.65 mil/uL (4.50-6.00); RDW 17.9 % (10.5-14.5); WBC 4.4 thou/uL (4.0-11.0)
[2019-01-14 16:53] LABS: CALCIUM 8.7 mg/dL (8.5-10.1); CREATININE 1.2 mg/dL (0.7-1.3); POTASSIUM 3.6 mmol/L (3.5-5.1)
[2019-01-14 16:59] LABS: TOTAL BILIRUBIN 0.7 mg/dL (<0.1-1.0); TOTAL PROTEIN 6.5 g/dL (6.4-8.2)
[2019-01-14 17:00] LABS: APTT 26.7 Seconds (24.5-32.8); INR 1.1
[2019-01-14 22:42] VITALS: BP 106/64
[2019-01-15] VITALS (7 sets, daily range): BP systolic 112–136; BP diastolic 74–80
--- NOTE | 2019-01-15 04:12 | NUR ---
PATIENT IS ALERT AND ORIENTED. PATIENT IS SBA. PATIENT IS ON ROOM AIR. PATIENT IS NSR ON TELE. PATIENT IS PENDING ECHO IN AM. PATIENT IS CONTIENT. PATIENTS LBM WAS THE 15TH MIRALAX GIVEN. PATIENT D-DIMER IS ELEVATED, TROPIN (-), CT (-). ORTHOSTATICS ORDERED FOR THIS AM. PATIENTS ANDRE IS TREATED WITH TYLENOL. PATIENT IS RESTING COMFORTABLY IN BED. WCM. PATIENT IS PROGRESSING TO GOALS.
[2019-01-15 06:09] LABS: HEMATOCRIT 22.9 % (42.0-52.0); HEMOGLOBIN 7.5 gm/dL (14.0-18.0); MCH 30.6 pg (26.0-34.0); MCHC 32.6 g/dL (28.0-37.0); MCV 93.8 fL (80.0-100.0); RBC 2.44 mil/uL (4.50-6.00); RDW 18.3 % (10.5-14.5)
[2019-01-15 06:20] LABS: CALCIUM 8.4 mg/dL (8.5-10.1); CREATININE 0.9 mg/dL (0.7-1.3); POTASSIUM 4.2 mmol/L (3.5-5.1)
[2019-01-15 06:26] LABS: ALBUMIN 2.7 g/dL (3.4-5.0); TOTAL BILIRUBIN 0.7 mg/dL (<0.1-1.0); TOTAL PROTEIN 5.7 g/dL (6.4-8.2)
[2019-01-15 06:56] LABS: TSH 3.379 uIU/mL (0.358-3.740)
--- NOTE | 2019-01-15 14:09 | 2DMMODE ---
[place] [address] [facility] [facility] [place] [place] [address] 2 D/M-MODE ECHOCARDIOGRAM Name: HARDIKPERFECTO Room #: 358-P ADM IN M.R.#: [id number] Admission: 01/14/19 Attend Phys: Rony Owens MD Discharge: Date of : 39 Date of Service: 01/15/19 1409 Report #: [id number] THIS REPORT FOR: //name// APPROVED REPORT Study performed: 01/15/2019 08:13:03 EXAM: Comprehensive 2D, Doppler, and color-flow Echocardiogram Patient Location: Bedside Room #: 358 Status: on-call BSA: 2.07 HR: 53 bpm BP: 130/78 mmHg Rhythm: NSR Other Information Study Quality: Adequate Technically limited study due to lung interference. Indications Dizziness, chest pain. Hx: HTN,HLP. 2D Dimensions RVDd: 37.73 mm IVSd: 10.49 (7-11mm) LVOT Diam: 22.39 (18-24mm) LVDd: 50.38 mm PWd: 10.36 (7-11mm) Ascending Ao: 33.46 (22-36mm) LVDs: 32.44 (25-40mm) Aortic Root: 35.68 mm Volumes Left Atrial Volume (Systole) Single Plane 4CH: 43.54 mL Single Plane 2CH: 67.61 mL LA ESV Index: 28.00 mL/m2 Aortic Valve AoV Peak Jack.: 1.99 m/s AO Peak Gr.: 15.86 mmHg LVOT Max P.85 mmHg AO Mean Gr.: 7.72 mmHg AO V2 Mean: 1.32 m/s LVOT Max V: 0.98 m/s AO V2 VTI: 42.58 cm SHEEBA Vmax: 1.94 cm2 [facility] [place] [place] [address] 2 D/M-MODE [facility]OCARDIOGRAM [facility] #: [facility] IN M.R.#: [id number] Admission: 01/14/19 Attend Phys: Rony Owens MD Discharge: Date of : 39 Date of Service: 01/15/19 1409 Report #: [id number] Mitral Valve E/A Ratio: 0.8 MV Decel. Time: 374.08 ms MV E Max Jack.: 0.62 m/s MV A Jack.: 0.73 m/s MV PHT: 108.48 ms IVRT: 87.66 ms Pulmonary Vein P Vein S: 0.55 m/s P Vein A: 0.38 m/s P Vein D: 0.34 m/s P Vein S/D Ratio: 1.62 Tricuspid Valve TR Peak Jack.: 2.12 m/s RAP Estimate: 5.00 mmHg TR Peak Gr.: 17.99 mmHg PA Pressure: 23.00 mmHg Left Ventricle The left ventricle is normal size. There is normal LV segmental wall motion. There is normal left ventricular wall thickness. Left ventricular systolic function is normal. LVEF is 55%. Mild diastolic dysfunction is present (impaired relaxation pattern). Right Ventricle The right ventricle is normal size. The right ventricular systolic function is normal. Atria The left atrium size is normal. The right atrium size is normal. Aortic Valve Aortic valve is moderately calcified. Mild aortic regurgitation. There is borderline mild valvular aortic stenosis. Calculated aortic valve area is 1.9 cm2 with maximum pressure gradient of 16 mmHg and mean pressure gradient of 8 mmHg. Mitral Valve The mitral valve is normal in structure. Mild mitral regurgitation. There is normal mitral valve excursion. Mild mitral stenosis. Tricuspid Valve The tricuspid valve is normal in structure. Trace tricuspid regurgitation. Estimated PAP is 25mmHg. [facility] [place] [place] [address] 2 D/M-MODE ECHOCARDIOGRAM Name: PERFECTO DYE Room #: 358-P ADM IN M.R.#: [id number] Admission: 01/14/19 Attend Phys: Rony Owens MD Discharge: Date of : 38 Date of Service: 01/15/19 1409 Report #: [id number] Pulmonic Valve Pulmonic valve is not well visualized. Great Vessels The aortic root is normal in size. The ascending aorta is normal in size. IVC is normal in size and collapses >50% with inspiration. Pericardium There is no pericardial effusion. <Conclusion> The left ventricle is normal size. There is normal left ventricular wall thickness. Left ventricular systolic function is normal. LVEF is 55%. Mild diastolic dysfunction is present (impaired relaxation pattern). The right ventricle is normal size. Aortic valve is moderately calcified. Mild aortic regurgitation. There is borderline mild valvular aortic stenosis. Calculated aortic valve area is 1.9 cm2 with maximum pressure gradient of 16 mmHg and mean pressure gradient of 8 mmHg. The mitral valve is normal in structure. Mild mitral regurgitation. The tricuspid valve is normal in structure. There is no pericardial effusion. <ELECTRONICALLY SIGNED> By: Dileep Alexander MD 01/15/19 1409 1409 1409 Dileep Alexander MD /INF
--- NOTE | 2019-01-15 15:28 | NUR ---
PATIENT CONT TO REST IN BED AT THIS TIME. WAS AMBULATED ON HALLWAY PER PATIENT REQUEST. STATES HE LIKES TO WALK AROUND. NO COMPLAIN OF PAIN AT THIS TIME. WILL CONT WITH PLAN OF CARE.
[2019-01-16 04:01] VITALS: BP 139/83
--- NOTE | 2019-01-16 05:51 | NUR ---
patient is alert and oriented. patient is up ad pippa. patient is on room air. patient showered this shift. patient is pending stress test thursday. patients lbm was the . patients pain is treated with pain medication. patient is resting comfortably in bed wcm. patient is progressing to goals.
[2019-01-16 07:18] VITALS: BP 142/85
[2019-01-16 10:38] LABS: HEMATOCRIT 24.7 % (42.0-52.0); MCH 30.8 pg (26.0-34.0); MCHC 32.6 g/dL (28.0-37.0); MCV 94.4 fL (80.0-100.0); RBC 2.61 mil/uL (4.50-6.00); RDW 18.6 % (10.5-14.5); WBC 2.9 thou/uL (4.0-11.0)
[2019-01-16 10:48] LABS: CALCIUM 8.7 mg/dL (8.5-10.1); CREATININE 1.1 mg/dL (0.7-1.3); MAGNESIUM 1.9 mg/dL (1.8-2.4); POTASSIUM 3.8 mmol/L (3.5-5.1)
[2019-01-16 10:49] VITALS: BP 142/85
--- NOTE | 2019-01-16 11:40 | EKG ---
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 : 1940 Requested By: Dale Dean Order Number: [id number] MD: Dileep Alexander Measurements Intervals [place] Rate: 84 P: 37 FL: 133 QRS: -13 QRSD: 110 T: 30 QT: 376 QTc: 445 Interpretive Statements Sinus rhythm Abnormal R-wave progression, early transition Inferior infarct, old Baseline wander in lead(s) V3 Compared to ECG 12/14/2018 13:54:27 Myocardial infarct finding now present Electronically Signed On 01-16-2019 11:40:01 CDT by Dileep Alexander [email or web address] <ELECTRONICALLY SIGNED> By: Dileep Alexander MD 01/16/19 1140 1550 1550 Dileep Alexander MD /EPI
[2019-01-16 12:47] VITALS: BP 142/85
--- NOTE | 2019-01-16 13:08 | NUR ---
ASSUMED PATIENT CARE AT 0700. A/O X4. NO DISTRESS NOTED. NO CHEST PAIN. DC TO HOME NOW.
--- NOTE | 2019-01-16 15:50 | NUR ---
PT ATTEMPTED TO SEE Pt IN PM FOR EVALUATION, HOWEVER Pt HAD ALREADY DISCHARGED FROM THE HOSPITAL.
== END 2019-01-16 13:10 | disposition home or self-care (01) | DRG 378 ==
LOC: ER 15:43 → EROBS 18:32 → 3W 22:55
PROVIDERS: Emergency Medicine; Internal Medicine; Nurse Practitioner; ADMIT Internal Medicine
DX: K57.31 Diverticulosis of large intestine without perforation or abscess with bleeding (principal); D62 Acute posthemorrhagic anemia; K59.00 Constipation, unspecified; E78.5 Hyperlipidemia, unspecified; R07.89 Other chest pain; I10 Essential (primary) hypertension; Z96.659 Presence of unspecified artificial knee joint; I95.9 Hypotension, unspecified; K22.70 Barrett's esophagus without dysplasia; Z86.73 Personal history of transient ischemic attack (TIA), and cerebral infarction without residual deficits; Z85.46 Personal history of malignant neoplasm of prostate; Z88.5 Allergy status to narcotic agent; Z88.1 Allergy status to other antibiotic agents; Z91.041 Radiographic dye allergy status; Z79.01 Long term (current) use of anticoagulants
CPT/HCPCS: 10879

== ENCOUNTER → 2019-06-09 | Outpatient (CLI) | payer OTHER ==
[~2019-06-09] VITALS: Ht 182.9 cm; Wt 95.3 kg
[~2019-06-09] MED LIST changes: +IRON325 M1 PO; +METRONIDAZOLE500 M4 PO; +TYLENOL325 MG PO; +VITAMIN D32000 UNIT PO
--- NOTE | 2019-06-10 10:13 | P ---
[facility] [place] [address] PROCEDURE REPORT Name: PERFECTO DYE Room #: REG MAYKEL Jay.#: [id number] Admission: 06/09/19 Attend Phys: Saravanan Pérez MD Discharge: Date of : 39 Report #: [id number] THIS REPORT FOR: //name// CC: Priyank Nelson DO Saravanan Pérez OUTPATIENT UPPER ENDOSCOPY REPORT BRIEF HISTORY: The patient is an 79-year-old male well known to me with history of recurrent solid food dysphagia. He also has a history of long segment Curran esophagus, low-grade dysplasia and is followed at [facility] for that particular problem. He is noted to have a large hiatus hernia. He has had previous esophageal dilation in the past. He has also had an iron deficiency anemia and currently has a normal hemoglobin with iron supplementation. PREOPERATIVE DIAGNOSIS: Recurrent dysphagia. POSTOPERATIVE DIAGNOSES: 1. A 5-6 cm hiatus hernia. 2. Diffuse gastritis. 3. Long segment Curran's esophagus. MEDICATIONS: Deep sedation with propofol per anesthesia. SPECIMEN: None. ESTIMATED BLOOD LOSS: None. PROCEDURE: EGD and Butcher dilation. FINDINGS: Prior to propofol sedation, the procedure of upper endoscopy and dilation were discussed with the patient as well as potential risks, benefits and complications. He indicates he understands and desires to proceed. DESCRIPTION OF PROCEDURE: With the patient in left lateral decubitus position, the Olympus video endoscope was inserted in the cervical esophagus under direct vision without difficulty. Examination of this organ through its entire length revealed normal esophageal mucosa in the proximal esophagus; however, the scope was advanced distally, the previously noted Curran esophagus was again seen. There was a long segment of Curran's mucosa. There were also scattered squamous islands as well. The mucosa was intact. There were no ulcers, erosions, masses or raised lesions. The mucosa examined with white light and narrow banded imaging and no worrisome lesions were seen. There was a very small amount of fluid noted in the esophagus, which was aspirated away. The scope was advanced to the gastroesophageal junction at top of the gastric folds. It was then advanced into the stomach. It also noted the distal esophagus was [facility] [address] [place] [address] PROCEDURE REPORT Name: HARDIKPERFECTO Room #: REG [facility]..#: [id number] Admission: 06/09/19 Attend Phys: Saravanan Pérez MD Discharge: Date of : 38 Report #: [id number] somewhat tortuous, but no strictures or mass lesions were seen. The scope was advanced in the hernia and ultimately into the stomach, was examined on end view as well as retroflexed views. Unfortunately, the patient was not able to hold the air very well and we could only get partial dilation of the stomach and the hernia. It was examined on end view as well as retroflexed views on multiple passes of the scope. It is noted to have gastritis, which has been identified in the past. He has some very small scattered polyps, which are likely related to his PPIs. They all have a benign appearance. There were multiple polyps. They were no more than about 4-5 mm. The hiatus hernia was estimated to be about at least 5-6 cm in greatest length. No ulcers or erosions were seen. The pylorus, duodenal bulb and postbulbar areas sweep were inspected and noted to be unremarkable. At that point, the scope was slowly withdrawn and careful circumferential views confirmed the above findings. The patient tolerated the procedure well. Subsequently, he was dilated with passage of 54-Mosotho Butcher dilator. The dilator passed without difficulty. CONDITION OF THE PATIENT UPON DISCHARGE: Following procedure, the patient drowsy and will be discharged home when fully ambulatory. INSTRUCTIONS TO THE PATIENT AND FAMILY AT THE TIME OF DISCHARGE: Findings as noted above. He was once again dilated. He was dilated slightly higher than his last visit of more than a year ago. I do not see definite stricture. There was tortuosity of the distal esophagus. He does have a hiatus hernia. These are all probably factors with regards to his dysphagia. However, he does respond to bougie dilation and continued repeat intermittently as needed. Another consideration would be surgical repair of his hiatus hernia. However, at this point in time, the patient is doing well. He should return to see me in followup in the office yearly. If he has recurrent symptoms of dysphagia, he should return for followup. <ELECTRONICALLY SIGNED> By: Saravanan Pérez MD 06/10/19 1013 0828 0904 Saravanan Pérez MD /nt
== END | disposition home or self-care (01) ==
LOC: GI 06:44
DX: R13.10 Dysphagia, unspecified (principal); K29.70 Gastritis, unspecified, without bleeding; K22.70 Barrett's esophagus without dysplasia; K31.7 Polyp of stomach and duodenum; K44.9 Diaphragmatic hernia without obstruction or gangrene; I10 Essential (primary) hypertension; E78.5 Hyperlipidemia, unspecified; N40.0 Benign prostatic hyperplasia without lower urinary tract symptoms; D64.9 Anemia, unspecified; M19.90 Unspecified osteoarthritis, unspecified site; K21.9 Gastro-esophageal reflux disease without esophagitis; Z98.890 Other specified postprocedural states; Z79.899 Other long term (current) drug therapy; Z85.46 Personal history of malignant neoplasm of prostate; Z96.652 Presence of left artificial knee joint; Z87.891 Personal history of nicotine dependence; Z98.0 Intestinal bypass and anastomosis status; Z79.01 Long term (current) use of anticoagulants; Z91.041 Radiographic dye allergy status; Z88.8 Allergy status to other drugs, medicaments and biological substances
CPT/HCPCS: 62110; 62900

== ENCOUNTER → 2019-07-15 | Outpatient (CLI) | payer OTHER | LOC: SJCVC 11:30 | DX: I10 Essential (primary) hypertension (principal); R94.31 Abnormal electrocardiogram [ECG] [EKG]; E78.5 Hyperlipidemia, unspecified; I47.1 Supraventricular tachycardia; E78.00 Pure hypercholesterolemia, unspecified; K21.9 Gastro-esophageal reflux disease without esophagitis; Z79.899 Other long term (current) drug therapy; Z87.891 Personal history of nicotine dependence ==

== ENCOUNTER → 2019-07-27 | Outpatient (CLI) | payer OTHER | LOC: CAT 15:00 | DX: Z13.6 Encounter for screening for cardiovascular disorders (principal); E78.00 Pure hypercholesterolemia, unspecified; I25.10 Atherosclerotic heart disease of native coronary artery without angina pectoris ==

== ENCOUNTER → 2019-12-27 | Outpatient (CLI) | payer OTHER | LOC: LAB 10:38 | PROVIDERS: ATTEND Student in an Organized Health Care Education/Training Program | DX: Z01.812 Encounter for preprocedural laboratory examination (principal); Z11.59 Encounter for screening for other viral diseases ==

== ENCOUNTER → 2019-12-30 | Outpatient (CLI) | payer OTHER ==
[~2019-12-30] VITALS: Ht 182.9 cm; Wt 95.3 kg
--- NOTE | 2020-01-03 17:06 | PATH ---
[facility] [place] [address] PATHOLOGY RPT PROCEDURE Name: PERFECTO PEREZ Room #: REG MAYKEL Thompson.#: [id number] Admission: 12/30/19 Date of : 38 Discharge: Report #: [id number] Path Case #: [id number] [facility] Accession Number: [id number] . 01 Material submitted: . PART A: colon - RANDOM BX PROXIMAL COLON. Modifiers: proximal PART B: colon - ASCENDING COLON POLYP. Modifiers: ascending PART C: colon - RANDOM BX COLON AND RECTAL BX . 01 Clinician provided ICD-10: y . 01 Clinical history: . Diarrhea A. Rule out colitis C. Rule out colitis . 02 Diagnosis: A. Large intestine, proximal colon, endoscopic biopsy: - Mild focal active colitis. - Negative for features of microscopic colitis. - Negative for dysplasia or malignancy. . B. Polyp, ascending colon polyp, endoscopic biopsy: - Tubular adenoma. - Negative for high-grade dysplasia. . C. Large intestine mucosa, random colon and rectal R/O colitis, endoscopic biopsy: - Mild focal active colitis. - Negative for features of microscopic colitis. - Lamina propria showing pigmented macrophages, compatible with melanosis coli. - Negative for dysplasia or malignancy. (IUV:karen; 01/03/2020) . QMS 01/03/2020 1500 Local . 02 Comment: Parts A and C: Sections of the colonic mucosa designated "random proximal colon, random colon and distal (part C)", show focal cryptitis, and a moderately cellular lamina propria composed predominantly of lymphocytes and plasma cells and occasional eosinophils. Surface ulceration is not identified. There are no crypt abscesses, granulomas or viral inclusions. The process affects all the fragments with a similar intensity. Given the description, the differential diagnosis includes focal active colitis due to self limited etiology, acute infectious-type [address] [address] PATHOLOGY RPT PROCEDURE Name: PERFECTO PEREZ Room #: REG CLI Noe#: [id number] Admission: 12/30/19 Date of : 38 Discharge: Report #: [id number] Path Case #: [id number] of colitis, early inflammatory bowel disease, acute diverticulitis, as well as medication/drug induced colitis. Pigmented macrophages are identified within the random colon and rectal biopsy tissue sample compatible with laxative use. Please correlate clinically. (IUV:karen; 01/03/2020) . 02 Electronically signed: . Yolanda Reilly MD, Pathologist NPI- [id number] . 01 Gross description: . A. The specimen is received in formalin, labeled "Fritz Perezford, random BX proximal colon" and consists of multiple fragments of sesay tissue measuring 1.1 x 1.1 x 0.3 cm in aggregate which are entirely submitted in A1. . B. The specimen is received in formalin, labeled "Ana, Fritzford, ascending colon polyp" and consists of a fragment of sesay tissue measuring 0.6 x 0.4 x 0.2 cm which is entirely submitted in B1. . C. The specimen is received in formalin, labeled "Ana, Winford, colon and rectal BX random" and consists of multiple fragments of sesay tissue measuring 1.5 x 1.1 x 0.3 cm in aggregate which are entirely submitted in C1. (SDY; 01/02/2020) SYU/SYU 01/03/2020 1453 Local . 02 Pathologist provided ICD-10: K52.9, D12.2 . 02 CPT . 178737, 805874, 346162 Specimen Comment: A courtesy copy of this report has been sent to [phone], [phone] Specimen Comment: [phone] Specimen Comment: Report sent to / Performed at: [address], [place] [id number] MD Jerry Gilbert MD Phone: [phone] Performed at: [address] [id number] MD Yolanda Reilly MD Phone: [phone]
--- NOTE | 2020-01-05 09:01 | P ---
[facility] [place] [address] [place] [address] PROCEDURE REPORT Name: PERFECTO DYE Room #: REG MAYKEL [facility].#: [id number] Admission: 12/30/19 Attend Phys: Saravanan Pérez MD Discharge: Date of : 39 Report #: [id number] THIS REPORT FOR: cc: Priyank Nelson David J. DO Thesing, John A. MD ~ CC: Priyank Rankin DATE OF SERVICE: 12/30/2019 OUTPATIENT COLONOSCOPY REPORT BRIEF HISTORY: The patient is an 79-year-old male known to me with history of colon polyps and also previous problems with iron deficiency anemia. Now, he has had a distinct change in bowel habits, is having multiple loose watery stools daily. PREOPERATIVE DIAGNOSIS: Change in bowel habits, diarrhea. POSTOPERATIVE DIAGNOSES: 1. Flat polyp, distal ascending colon. 2. Moderate diverticulosis coli, primarily sigmoid colon, but also few scattered tics in the proximal colon. ESTIMATED BLOOD LOSS: 3 mL. PROCEDURE: Colonoscopy to cecum and terminal ileum with snare polypectomy and biopsy. FINDINGS: Prior to propofol sedation, procedure of colonoscopy discussed with the patient as well as potential risks and its complications. He indicates he understands and desires to proceed. DESCRIPTION OF PROCEDURE: With the patient in left lateral decubitus position, digital examination was completed, which revealed no abnormalities. Subsequently, the Olympus video colonoscope was introduced into the rectum, advanced under direct vision to the cecum. Done with minimal difficulty. The cecum was identified by the ileocecal valve and the appendiceal orifice. I was able to visualize the distal segment of terminal ileum, which was inspected and noted to be unremarkable. At that point, the scope was slowly withdrawn and careful circumferential views were obtained. Upon slow withdrawal of the scope, the prep was good. The mucosa was within normal limits, normal vascular pattern, normal light reflex. As we withdrew the scope, he was noted to have normal mucosa throughout the entire colon. In spite of these findings, in view [address] [address] [id number] Admission: 12/30/19 Attend Phys: Saravanan Pérez MD Discharge: Date of : 38 Report #: [id number] of his symptoms, multiple random biopsies were obtained of the colonic mucosa. I did not see endoscopic evidence of colitis. As we withdrew the scope, a flat 5-6 mm polyp was seen in the distal ascending colon that was removed by cold snare polypectomy and recovered. Scope was further withdrawn and no additional polyps were seen. There were few scattered diverticula in proximal colon, but no endoscopic evidence of diverticulitis. In the sigmoid colon, there was noted to be moderately severe diverticular disease without endoscopic evidence of diverticulitis. Scope was withdrawn in the rectum, no abnormalities were seen. Upon retroflexion, no abnormalities were seen. Scope was withdrawn. The patient tolerated the procedure well. CONDITION OF THE PATIENT UPON DISCHARGE: Following procedure, the patient drowsy, aroused, conversant and will be discharged home when fully ambulatory. INSTRUCTIONS TO THE PATIENT AND FAMILY AT THE TIME OF DISCHARGE: No endoscopic evidence of inflammatory disease or mucosal disease. We will follow up on biopsies obtained today. In the meantime, he may use Imodium as needed. Another consideration of the colestipol. We will follow up on the path report. He is 79 years old. If the polyp is an adenoma, give consideration to return in 5 years. However, would only do in 5 years; if his health is good at that point in time and there was very good longevity. Otherwise, followup colonoscopy would not be needed. If he continues to have difficulty with diarrhea he should in followup in the office. We will follow up on biopsies and make further recommendations. <ELECTRONICALLY SIGNED> By: Saravanan Pérez MD 01/05/20 0901 1235 1503 Saravanan Pérez MD /nt
== END | disposition home or self-care (01) ==
LOC: GI 08:48
PROVIDERS: ATTEND Specialist
DX: R19.4 Change in bowel habit (principal); D12.2 Benign neoplasm of ascending colon; K52.9 Noninfective gastroenteritis and colitis, unspecified; K57.30 Diverticulosis of large intestine without perforation or abscess without bleeding; I10 Essential (primary) hypertension; E78.5 Hyperlipidemia, unspecified; D64.9 Anemia, unspecified; K21.9 Gastro-esophageal reflux disease without esophagitis; N40.0 Benign prostatic hyperplasia without lower urinary tract symptoms; Z85.46 Personal history of malignant neoplasm of prostate; Z98.890 Other specified postprocedural states; Z79.899 Other long term (current) drug therapy; Z79.01 Long term (current) use of anticoagulants; Z96.652 Presence of left artificial knee joint; Z98.0 Intestinal bypass and anastomosis status; Z91.041 Radiographic dye allergy status; Z88.8 Allergy status to other drugs, medicaments and biological substances
CPT/HCPCS: 62110; 62900

== ENCOUNTER → 2020-01-23 | Outpatient (CLI) | payer OTHER | LOC: SJCVC 11:18 | PROVIDERS: ATTEND Internal Medicine Cardiovascular Disease | DX: I10 Essential (primary) hypertension (principal); R94.31 Abnormal electrocardiogram [ECG] [EKG]; R00.1 Bradycardia, unspecified; I25.10 Atherosclerotic heart disease of native coronary artery without angina pectoris; I47.1 Supraventricular tachycardia; K21.9 Gastro-esophageal reflux disease without esophagitis; Z79.899 Other long term (current) drug therapy; Z87.891 Personal history of nicotine dependence ==

== ENCOUNTER → 2020-03-27 | Outpatient (CLI) | payer OTHER | LOC: LAB 07:58 | PROVIDERS: ATTEND Anesthesiology | DX: Z01.818 Encounter for other preprocedural examination (principal); Z20.828 Contact with and (suspected) exposure to other viral communicable diseases ==

== ENCOUNTER → 2020-08-15 | Outpatient (CLI) | payer OTHER | LOC: SJCVCIMAG 07:46 | PROVIDERS: ATTEND Internal Medicine Cardiovascular Disease | DX: R94.31 Abnormal electrocardiogram [ECG] [EKG] (principal); I08.0 Rheumatic disorders of both mitral and aortic valves; R00.1 Bradycardia, unspecified; I25.10 Atherosclerotic heart disease of native coronary artery without angina pectoris; I10 Essential (primary) hypertension; E78.00 Pure hypercholesterolemia, unspecified; H53.8 Other visual disturbances; Z88.1 Allergy status to other antibiotic agents; Z88.5 Allergy status to narcotic agent; Z88.8 Allergy status to other drugs, medicaments and biological substances; Z79.82 Long term (current) use of aspirin; Z79.899 Other long term (current) drug therapy; Z79.01 Long term (current) use of anticoagulants; Z86.73 Personal history of transient ischemic attack (TIA), and cerebral infarction without residual deficits; E78.5 Hyperlipidemia, unspecified; Z87.891 Personal history of nicotine dependence ==

== ENCOUNTER → 2020-08-30 | Outpatient (CLI) | payer OTHER | LOC: SJCVCIMAG 07:29 | PROVIDERS: ATTEND Internal Medicine Cardiovascular Disease | DX: I65.23 Occlusion and stenosis of bilateral carotid arteries (principal); R94.31 Abnormal electrocardiogram [ECG] [EKG]; I49.9 Cardiac arrhythmia, unspecified; I10 Essential (primary) hypertension; I25.10 Atherosclerotic heart disease of native coronary artery without angina pectoris; E78.00 Pure hypercholesterolemia, unspecified; H53.8 Other visual disturbances; E78.5 Hyperlipidemia, unspecified; I47.1 Supraventricular tachycardia; M19.90 Unspecified osteoarthritis, unspecified site; Z88.8 Allergy status to other drugs, medicaments and biological substances; Z98.890 Other specified postprocedural states; Z79.82 Long term (current) use of aspirin; Z79.899 Other long term (current) drug therapy; Z87.891 Personal history of nicotine dependence; Z86.73 Personal history of transient ischemic attack (TIA), and cerebral infarction without residual deficits ==

== ENCOUNTER → 2020-09-27 | Outpatient (CLI) | payer OTHER | LOC: SJCVC 11:14 | PROVIDERS: ATTEND Internal Medicine Cardiovascular Disease | DX: I10 Essential (primary) hypertension (principal); I25.10 Atherosclerotic heart disease of native coronary artery without angina pectoris; E78.5 Hyperlipidemia, unspecified; R00.1 Bradycardia, unspecified; Z79.01 Long term (current) use of anticoagulants; Z86.73 Personal history of transient ischemic attack (TIA), and cerebral infarction without residual deficits ==

== ENCOUNTER → 2020-11-02 | Outpatient (CLI) | payer OTHER | LOC: RAD 09:44 | PROVIDERS: ATTEND Otolaryngology Plastic Surgery within the Head & Neck | DX: K44.9 Diaphragmatic hernia without obstruction or gangrene (principal); K21.9 Gastro-esophageal reflux disease without esophagitis; R49.0 Dysphonia; R09.89 Other specified symptoms and signs involving the circulatory and respiratory systems; K22.8 Other specified diseases of esophagus; M40.204 Unspecified kyphosis, thoracic region; R05 Cough; J33.9 Nasal polyp, unspecified; J31.0 Chronic rhinitis; M25.78 Osteophyte, vertebrae; Z98.890 Other specified postprocedural states ==

== ENCOUNTER → 2020-11-15 | Outpatient (CLI) | payer OTHER | LOC: SJCVC 14:31 | PROVIDERS: ATTEND Internal Medicine Cardiovascular Disease | DX: E78.2 Mixed hyperlipidemia (principal) ==

== ENCOUNTER → 2021-01-23 | Outpatient (CLI) | payer OTHER | LOC: SJCVC 08:41 | PROVIDERS: ATTEND Internal Medicine Cardiovascular Disease | DX: E78.5 Hyperlipidemia, unspecified (principal); I10 Essential (primary) hypertension; I25.10 Atherosclerotic heart disease of native coronary artery without angina pectoris; Z79.82 Long term (current) use of aspirin; Z79.899 Other long term (current) drug therapy ==

== ENCOUNTER → 2021-02-22 | Outpatient (CLI) | payer OTHER | LOC: SJCVC 11:15 | PROVIDERS: ATTEND Internal Medicine Cardiovascular Disease | DX: R94.31 Abnormal electrocardiogram [ECG] [EKG] (principal); I25.10 Atherosclerotic heart disease of native coronary artery without angina pectoris; I11.9 Hypertensive heart disease without heart failure; I47.1 Supraventricular tachycardia; E78.49 Other hyperlipidemia; H53.8 Other visual disturbances; Z88.1 Allergy status to other antibiotic agents; Z88.5 Allergy status to narcotic agent; Z79.899 Other long term (current) drug therapy; Z79.82 Long term (current) use of aspirin; Z87.891 Personal history of nicotine dependence ==

== ENCOUNTER → 2021-03-04 | Outpatient (CLI) | payer OTHER ==
[~2021-03-04] MED LIST changes: +ASA81BEC PO; +FLUTICASONE PRO16 GM INH; +PROTONIX40 M2 PO; +ROSUVASTATIN CA10 MG PO
[2021-03-04 11:04] LABS: HEMATOCRIT 46.5 % (42.0-52.0); HEMOGLOBIN 15.1 gm/dL (14.0-18.0); MCHC 32.4 g/dL (28.0-37.0); MCV 95.6 fL (80.0-100.0); RBC 4.86 mil/uL (4.50-6.00); RDW 15.3 % (10.5-14.5); WBC 3.4 thou/uL (4.0-11.0)
[2021-03-04 11:07] LABS: URINE BILIRUBIN NEGATIVE (Negative); URINE BLOOD NEGATIVE (Negative); URINE CLARITY CLEAR; URINE COLOR YELLOW; URINE GLUCOSE-RANDOM* NEGATIVE (Negative); URINE KETONES NEGATIVE (Negative); URINE LEUKOCYTES-REFLEX NEGATIVE (Negative); URINE NITRITE-REFLEX NEGATIVE (Negative); URINE PROTEIN (DIPSTICK) NEGATIVE (Negative); URINE UROBILINOGEN 0.2 E.U./dl (0.2-1.0)
[2021-03-04 11:25] LABS: PROTIME 10.9 Seconds (10.5-12.1)
[2021-03-04 11:28] LABS: ALBUMIN 3.8 g/dL (3.4-5.0); POTASSIUM 4.7 mmol/L (3.5-5.1)
== END ==
LOC: PAC 10:14
PROVIDERS: ATTEND Orthopaedic Surgery
DX: Z01.812 Encounter for preprocedural laboratory examination (principal); M17.11 Unilateral primary osteoarthritis, right knee

== ENCOUNTER 2021-03-12 06:50 | Observation (INO) | payer OTHER ==
[~2021-03-12] VITALS: Ht 180.3 cm; Wt 96.2 kg
[2021-03-12 08:13] VITALS: BP 143/75
[2021-03-12 13:02] VITALS: BP 131/84
[2021-03-12 15:37] VITALS: BP 119/85
[2021-03-12 20:28] VITALS: BP 148/91
--- NOTE | 2021-03-13 06:41 | NUR ---
RECEIVED CARE OF THIS PATIENT AT 1900. PATIENT ALERT AND ORIENTED X4. REMAINS ON BEDREST D/O BLOCK GIVEN IN SURGERY. HAS TEDS, SCD'S, SUSAN DRESSING AND POLAR ICE TO R KNEE. DENIES PAIN. IV INFUSING. SLEPT LITTLE THIS SHIFT.
[2021-03-13 07:00] VITALS: BP 146/88
--- NOTE | 2021-03-13 11:43 | NUR ---
PT ADMITTED RELATED TO RT TKR. CM REVIEWED CHART AND SPOKE WITH CARE TEAM. CM MET WITH PT AND SPOUSE AT BEDSIDE THIS DAY. PT INDICATED HE RESIDES IN A SPLIT LEVEL HOUSE WITH HIS . THEY INDICATED 5 STEPS INTO HOME FROM FRONT, 7 STEPS IN THROUGH GARAGE AND 7 STEPS TO BEDROOM LEVEL. PT INDICATED HE HAS A FWW FOR HOME USE. PT INDICATED HE IS TO SET UP OP OT AT [facility] MAY NOW BE CALLED [facility] IN [place]. CARE TEAM INDICATED THAT PT WILL LIKELY BE MEDICALLY STABLE TO DC HOME THIS DAY. NO OTHER CM INTERVENTION ANTICPATED.
[2021-03-13 12:53] VITALS: BP 146/88
--- NOTE | 2021-03-13 13:46 | NUR ---
PT ALERT AND ORIENTED TIMES FOUR. VSS. IVF INFUSING PER ORDER. SUSAN DRESSING AND POLAR PACK IN PLACE. PT C/O PAIN PRN PAIN MEDICATIONS CONTROLLING PAIN WELL. PT TOLERATES MEDS AND MEALS. PT WOKED WELL WITH PT/OT. PLANS FOR DISCHARGE TODAY. PT PROGRESSING TOWRADS POC GOALS.
--- NOTE | 2021-03-20 13:42 | O ---
[facility] [place] [place] [address] OPERATIVE REPORT Name: PERFECTO DYE Room #: 446-P [facility] Quinten Liu#: [id number] Admission: 03/12/21 Attend Phys: Andrew Sotelo MD Discharge: 03/13/21 Date of : 38 Report #: [id number] THIS REPORT FOR: cc: Priyank Nelson David J. DO Abraham, Scott M. MD ~ DATE OF SERVICE: 03/12/2021 PREOPERATIVE DIAGNOSIS: Right knee osteoarthritis. POSTOPERATIVE DIAGNOSIS: Right knee osteoarthritis. PROCEDURE: Right total knee arthroplasty using Navio robotic assistance. SURGEON: Andrew Sotelo MD. GRINDER HAND: Laurie Avila PA-C. INDICATION FOR GRINDER HAND: Throughout the case, extensive retraction and manipulation of the knee was required. This was afforded to me by my creative assistant. ANESTHESIA: LMA with adductor canal block. IMPLANTS: A [employer]hew size 6 Journey II BCS cobalt chrome femur, size 7 tibia, size 10 constrained polyethylene, size 35 patella. TOURNIQUET TIME: 55 minutes. ESTIMATED BLOOD LOSS: 25 mL. COMPLICATIONS: None. SPECIMENS: None. CONDITION UPON LEAVING THE OR: Stable. INDICATIONS FOR PROCEDURE: The patient is an 80-year-old gentleman with a right knee osteoarthritis. He had failed conservative measures for this and after discussion with him, he elected for right total knee arthroplasty. DESCRIPTION OF PROCEDURE: Risks, benefits, alternatives, complications were discussed in detail with the patient including but not limited to risk of anesthesia, risk of damage to nerves, arteries, blood vessels, risk for infection, bleeding, risk for DVT, PE and need for reoperation. Informed consent was obtained from the patient. Right knee was appropriately marked in the preoperative holding area. Adductor canal block was placed by anesthesia. [facility] [address] [place] [address] OPERATIVE REPORT Name: PERFECTO DYE Room #: 446-P [facility] Liu#: [id number] Admission: 03/12/21 Attend Phys: Andrew Sotelo MD Discharge: 03/13/21 Date of : 39 Report #: [id number] He was brought to the operating room and placed in supine position on the operating table. IV Ancef was given for preoperative antibiotics. He was brought to the operating room and placed in supine position on the operating table. LMA anesthesia was induced without complication. Tourniquet was placed on the right thigh. Right lower extremity was prepped and draped in normal sterile fashion. Timeout was performed properly identifying the patient and procedure as well as the instrumentation and implants. All in the operating room in agreement. Right lower extremity was exsanguinated and tourniquet inflated. Tourniquet time was 55 minutes. Standard midline approach to knee was made with 10 blade through the skin. Dissection was taken down sharply to the fascia and deep flaps were developed medially and laterally. Fresh 10 blade was used to make a medial parapatellar arthrotomy and the knee was inspected. There was severe tricompartmental osteoarthritis. ACL and PCL were removed sharply. Reference pins were placed in the femur and the tibia. The knee was digitally mapped using the GRUZOBZOR robotic system. Intraoperative plan was made. We sized the size 6 femur, size 7 tibia and a 10 spacer. After acceptance of the intraoperative plan, the distal femoral cut was made with Navio bur. Distal femoral cutting block was pinned in place and chamfer cuts were made. Attention was turned to the tibia. Remainder of the menisci removed with Bovie cautery. Tibial resection guide was pinned in place using Navio for placement and tibial resection was made. Flexion and extension gaps were then checked and found to be somewhat tight laterally in extension. A limited lateral release was performed using the pie crust technique and this balanced the knee well. Tibia sized, found to be a size 7 and size 7 tibial trial was placed, pinned and punched. Size 6 femoral trial was placed and box cut was made. This was trialed with a size 9 and then a size 10 polyethylene and size 10 polyethylene demonstrated the best stability and range of motion with up to 2 mm of laxity medially and deep flexion. It was felt we can make up for this with a constrained implant. A 9 mm of bone was resected from the posterior surface of the patella and a size 35 patellar trial button was placed. Knee was taken through range of motion, found to be stable, found to have good patellar tracking. Trial components were removed. Bone ends were thoroughly irrigated with normal saline. A final size 7 tibia, size 6 Journey II BCS cobalt chrome femur and a size 35 patella were cemented in place using standard cementation techniques. While the cement cured, a periarticular injection consisting of morphine, ropivacaine, epinephrine, Toradol placed around the knee joint capsule. After the cement cured, tourniquet was deflated, hemostasis was obtained with Bovie cautery. A final size 10 constrained polyethylene was placed. A gram of vancomycin was placed deep in the joint. The fascia was closed with 0 Vicryl. Skin was closed with 2-0 Vicryl, 3-0 Monocryl. [place] [address] [address] OPERATIVE REPORT Name: PERFECTO DYE Room #: 446-P [facility] Quinten Liu#: [id number] Admission: 03/12/21 Attend Phys: Andrew Sotelo MD Discharge: 03/13/21 Date of : 38 Report #: [id number] and a SUSAN dressing was applied. The patient tolerated this procedure well and went to recovery room under care of Anesthesia postoperatively. <ELECTRONICALLY SIGNED> By: Andrew Sotelo MD 03/20/21 1342 1042 1107 Andrew Sotelo MD /nt
== END 2021-03-13 14:45 | disposition home or self-care (01) ==
LOC: TBA 06:50 → OR 06:50 → 4S 12:28 → OR 15:42 → 4S 03-13 14:45
PROVIDERS: ADMIT Orthopaedic Surgery; ATTEND Orthopaedic Surgery
DX: M17.11 Unilateral primary osteoarthritis, right knee (principal); Z20.822 Contact with and (suspected) exposure to COVID-19; Z98.890 Other specified postprocedural states
CPT/HCPCS: 50010; 50101; 50415; 50954; 51130; 51225; 51320; 52001; 52282; 53000; 53078; 54118; 56527; 56528; 57095; 57103; 57110; 57127; 57180; 58239; 62110; 62900; 64039; 70005